=== PATIENT | male | born 1955 | race Caucasian/White ===

== ENCOUNTER → 2019-06-13 | Day surgery (SDC) | payer OTHER ==
[2019-06-06 14:44] LABS: INR 1.34; PROTHROMBIN TIME 17.2 seconds (11.9-14.5)
[2019-06-06 14:45] LABS: PARTIAL THROMBOPLASTIN TIME 39.6 seconds (23.8-35.5)
[2019-06-06 14:48] LABS: ANION GAP 11.8 mmol/L (8-16); BLOOD UREA NITROGEN 11 mg/dL (7-26); BUN/CREATININE RATIO 12 (6-25); CALCIUM 8.9 mg/dL (8.4-10.2); CARBON DIOXIDE 23 mmol/L (22-29); CHLORIDE 102 mmol/L (98-107); CREATININE, SERUM 0.93 mg/dL (0.72-1.25); EST GLOMERULAR FILTRATION RATE > 60 ML/MIN (60-); GLUCOSE 99 mg/dL (74-118); POTASSIUM 3.8 mmol/L (3.5-5.1); SODIUM 133 mmol/L (136-145)
[2019-06-06 17:12] LABS: ALANINE AMINOTRANSFERASE 23 IU/L (0-55); ALBUMIN 2.9 g/dL (3.5-5.0); ALKALINE PHOSPHATASE 119 IU/L (40-150); BILIRUBIN,DIRECT 1.4 mg/dL (0.0-0.5)
[~2019-06-13] MED LIST: ASPIRIN325 MG PO; BENICAR20 MG PO; BYSTOLIC10 MG PO; FENTANYL CITRATE/PF 100MCG/2 ML INJ ONE; FUROSEMIDE40 MG PO; HUMALOG100 UNIT/3 SC; LANTUS 3ML100 UNITS/ SC; MIDAZOLAM HCL 2 MG/2 ML VIAL ONE; NEOMYC-POLYM-DEX5 ML OP; OR PHACO EYE KIT ONE; POTASSIUM99 MG PO; PREOP PHACO EYE KIT ONE; PROPANOLOL PO; SPIRONOLACTONE25 MG PO; SYNTHROID50 MCG PO; VITAMIN B-121000 MCG PO
--- OUTSIDE RECORDS SUMMARY | 2019-06-13 08:39 | XMS REPORT | Clinical Summary ---
Author Author Kirill Yazidi Organization [facility] Address Unknown Phone Unavailable Care Team Providers Care Clinical Safety Manager Name Role Phone Vaibhav Fam MD PCP Allergies Comments Active Allergy Reactions Severity Noted Date Latex 11/15/2017 Medications End Date Status Medication Sig Dispensed Refills Start Date Active levothyroxine (SYNTHROID, Take 200 mcg 0 LEVOXYL) 200 mcg tablet by mouth daily. Active insulin lispro (HumaLOG) Inject 15 0 100 unit/mL injection Units under the skin 3 (three) times a day before meals. Active insulin GLARGINE (LANTUS) Inject 15 0 100 unit/mL injection Units under (vial) the skin nightly. Active pantoprazole (PROTONIX) Take 40 mg by 0 40 MG EC tablet mouth. Active levothyroxine (SYNTHROID, Take 200 mcg 0 LEVOXYL) 200 mcg tablet by mouth. 7 06/28/2018 Discontinued furosemide (LASIX) 40 mg Take 40 mg by 0 tablet mouth every evening. 06/28/2018 Discontinued traMADol (ULTRAM) 50 mg Take 1 tablet 6 tablet 0 tablet (50 mg total) 8 by mouth every 6 (six) hours as needed for moderate pain for up to 2 days. 06/28/2018 Discontinued spironolactone Take 25 mg by 0 (ALDACTONE) 25 MG tablet mouth every morning. 06/28/2018 Discontinued propranolol (INDERAL) 20 Take 20 mg by 0 MG tablet mouth 2 (two) times a day. 07/28/2018 midodrine (PROAMATINE) 10 Take 1 tablet 90 tablet 0 MG tablet (10 mg total) 8 by mouth 3 (three) times a day for 30 days. 07/28/2018 midodrine (PROAMATINE) 5 Take 1 tablet 0 MG tablet (5 mg total) 8 by mouth every 6 (six) hours as needed (systolic b/p <100) for up to 30 days. 07/28/2018 hydrocortisone sodium Infuse 0.5 mL 30 mL 0 succinate (Solu-CORTEF) (25 mg total) 8 100 mg/2 mL recon soln into a venous catheter every 12 (twelve) hours for 30 days. 07/28/2018 enoxaparin (LOVENOX) 30 Inject 0.3 mL 9 mL 0 mg/0.3 mL syringe (30 mg total) 8 under the skin daily for 30 days. 07/29/2018 spironolactone Take 1 tablet 30 tablet 0 (ALDACTONE) 100 MG tablet (100 mg 8 total) by mouth daily for 30 days. 07/12/2018 vancomycin (VANCOCIN) Infuse 1,000 0 1000 mg IVPB in 250 mL NS mg into a 8 combo venous catheter every 12 (twelve) hours for 14 days. Active Problems Problem Noted Date Acute renal failure 06/14/2018 Heart block AV second degree 11/17/2017 Liver disease 11/16/2017 Hypertension 11/16/2017 Uncontrolled type 2 diabetes mellitus with hyperosmolar nonketotic 11/15/2017 hyperglycemia Encounters Care Team Description Date Type Specialty Alexis Richardson MD Pacemaker insertion new or replacement [88367 (CPT)] 06/24/2018 Surgery Procedural Cardiology Álvaro Jarquin MD Insertion or replacement temporary transvenous pacemaker leads [03714 (CPT)] 06/17/2018 Surgery Procedural Cardiology Celestino Ruiz MD Kohlnhofer, Matthew, MD Acute renal failure, unspecified acute renal failure type (Primary Dx); Hypovolemic shock; Altered mental status, unspecified altered mental status type; Hyponatremia; Lactic acidosis; Acute respiratory failure, unspecified whether with hypoxia or hypercapnia; Septic shock 06/14/2018 [facility] General Internal Medicine - Encounter 06/28/2018 after 06/12/2018 Immunizations Name Dates Previously Given Next Due FLUCELVAX QUAD PF (0.5mL 11/16/2017 syringe) Pneumococcal Conjugate 11/16/2017 [facility] Social History Date Tobacco Use Types Packs/Day Years Used Former Smoker Smokeless Tobacco: Former User Tobacco Cessation: Counseling Given: No Alcohol Use Drinks/Week oz/Week Comments Yes "Quit" Sex Assigned at Date Recorded Not on file Industry Job Start Date Occupation Not on file Not on file Not on file Travel End Travel History Travel Start No recent travel history available. Last Filed Vital Signs Time Taken Vital Sign Reading 06/28/2018 3:54 PM CDT Blood Pressure 122/59 06/28/2018 3:54 PM CDT Pulse 79 06/28/2018 3:54 PM CDT Temperature 36.9 C (98.4 F) 06/28/2018 3:54 PM CDT Respiratory Rate 18 06/28/2018 4:36 PM CDT Oxygen Saturation 93% - Inhaled Oxygen - Concentration 06/22/2018 4:00 AM CDT Weight 119 kg (262 lb 2 oz) 06/14/2018 8:12 AM CDT Height 177.8 cm (5' 10") 06/14/2018 8:12 AM CDT Body Mass Index 37.61 Plan of Treatment Health Maintenance Due Date Last Done Comments DIABETIC RETINAL EYE EXAM 1956 DIABETIC FOOT EXAM 1966 URINE MICROALBUMIN 1966 COLONOSCOPY SCREENING 2006 SHINGLES VACCINES (#1) 2006 INFLUENZA VACCINE 06/29/2019 11/16/2017, 11/03/2016 Implants Device Identifier Shelf Expiration Date Model / Serial / Lot Implanted Type Area [facility] 09/21/2020 S-[id number] / [id number] / [id number] Disp Pacing Cable, Small Clip Cables/ N/A: N/A CRIS W/Safe Connect Leads MEDICAL, Implanted: Qty: 1 on 06/24/2018 by INC. Alexis Richardson MD 03/09/2020 [id number] / [id number] / [id number] Accolade Mri Pacemaker - [id number] Cardiac N/A: N/A [place] - [id number] Pacemaker SCIENTIFIC Implanted: Qty: 1 on 06/24/2018 by Generators - CRM Alexis Richardson MD 01/17/2020 [id number] / [id number] / [id number] Ingevity Mri Pacing Lead 45cm - Cardiac N/A: N/A [place] [id number] - [id number] Pacing SCIENTIFIC Implanted: Qty: 1 on 06/24/2018 by Leads Alexis Kern MD Electrodes or Accessorie s 11/30/2018 [id number] / [id number] / [id number] 52cm Ingevity Mri Active Fixation Cardiac N/A: N/A [place]ON Pacing Lead - [id number] - [id number] Pacing SCIENTIFIC Implanted: Qty: 1 on 06/24/2018 by Leads Alexis Kern MD Electrodes or Accessorie s Procedures Comments Procedure Name Priority Date/Time Associated Diagnosis POC GLUCOSE Routine 06/28/2018 4:19 PM CDT POC GLUCOSE Routine 06/28/2018 11:26 AM CDT BUN LEVEL Routine 06/28/2018 7:09 AM CDT ZZESTIMATED GFR Routine 06/28/2018 7:09 AM CDT CREATININE LEVEL Routine 06/28/2018 7:09 AM CDT POC GLUCOSE Routine 06/28/2018 5:34 AM CDT HC COMPLETE BLD COUNT Routine 06/28/2018 W/AUTO DIFF 4:38 AM CDT POC GLUCOSE Routine 06/27/2018 7:45 PM CDT POC GLUCOSE Routine 06/27/2018 4:32 PM CDT POC GLUCOSE Routine 06/27/2018 11:20 AM CDT POC GLUCOSE Routine 06/27/2018 5:48 AM CDT POC GLUCOSE Routine 06/26/2018 8:23 PM CDT POC GLUCOSE Routine 06/26/2018 4:50 PM CDT POC GLUCOSE Routine 06/26/2018 11:46 AM CDT POC GLUCOSE Routine 06/26/2018 7:45 AM CDT POC GLUCOSE Routine 06/26/2018 5:38 AM CDT SMEAR REVIEW Routine 06/26/2018 5:15 AM CDT VANCOMYCIN LEVEL, TROUGH Timed 06/26/2018 5:15 AM CDT ZZESTIMATED GFR Routine 06/26/2018 5:15 AM CDT MAGNESIUM LEVEL Routine 06/26/2018 5:15 AM CDT COMPREHENSIVE METABOLIC Routine 06/26/2018 PANEL 5:15 AM CDT HC COMPLETE BLD COUNT Routine 06/26/2018 W/AUTO DIFF 5:15 AM CDT POC GLUCOSE Routine 06/25/2018 8:24 PM CDT POC GLUCOSE Routine 06/25/2018 4:38 PM CDT POC GLUCOSE Routine 06/25/2018 12:27 PM CDT ZZESTIMATED GFR Routine 06/25/2018 9:04 AM CDT BASIC METABOLIC PANEL Routine 06/25/2018 9:04 AM CDT HC COMPLETE BLD COUNT Routine 06/25/2018 W/AUTO DIFF 9:04 AM CDT POC GLUCOSE Routine 06/25/2018 7:14 AM CDT POC GLUCOSE Routine 06/24/2018 8:50 PM CDT POC GLUCOSE Routine 06/24/2018 5:19 PM CDT XR CHEST 1 VW PORTABLE Routine 06/24/2018 3:40 PM CDT EP PACEMAKER INSERTION Routine 06/24/2018 NEW OR REPLACEMENT 2:02 PM CDT POC GLUCOSE Routine 06/24/2018 11:34 AM CDT TYPE AND SCREEN Routine 06/24/2018 11:15 AM CDT PARTIAL THROMBOPLASTIN Routine 06/24/2018 TIME (PTT) 10:25 AM CDT PROTHROMBIN TIME WITH INR Routine 06/24/2018 10:25 AM CDT POC GLUCOSE Routine 06/24/2018 7:17 AM CDT SMEAR REVIEW Routine 06/24/2018 5:05 AM CDT VANCOMYCIN LEVEL, TROUGH Timed 06/24/2018 5:05 AM CDT ZZESTIMATED GFR Routine 06/24/2018 5:05 AM CDT HC COMPLETE BLD COUNT Routine 06/24/2018 W/AUTO DIFF 5:05 AM CDT PHOSPHORUS LEVEL Routine 06/24/2018 5:05 AM CDT MAGNESIUM LEVEL Routine 06/24/2018 5:05 AM CDT BASIC METABOLIC PANEL Routine 06/24/2018 5:05 AM CDT POC GLUCOSE Routine 06/23/2018 8:43 PM CDT POC GLUCOSE Routine 06/23/2018 5:02 PM CDT POC GLUCOSE Routine 06/23/2018 11:28 AM CDT POC GLUCOSE Routine 06/23/2018 7:36 AM CDT ZZESTIMATED GFR Routine 06/23/2018 5:15 AM CDT MAGNESIUM LEVEL Routine 06/23/2018 5:15 AM CDT PHOSPHORUS LEVEL Routine 06/23/2018 5:15 AM CDT BASIC METABOLIC PANEL Routine 06/23/2018 5:15 AM CDT HC COMPLETE BLD COUNT Routine 06/23/2018 W/AUTO DIFF 5:15 AM CDT IONIZED CALCIUM Routine 06/23/2018 5:15 AM CDT VANCOMYCIN LEVEL, TROUGH Timed 06/23/2018 5:15 AM CDT POC GLUCOSE Routine 06/23/2018 5:10 AM CDT POC GLUCOSE Routine 06/22/2018 11:42 PM CDT POC GLUCOSE Routine 06/22/2018 4:39 PM CDT POC GLUCOSE Routine 06/22/2018 12:11 PM CDT POC GLUCOSE Routine 06/22/2018 7:38 AM CDT ZZESTIMATED GFR Routine 06/22/2018 5:56 AM CDT VANCOMYCIN LEVEL, TROUGH Routine 06/22/2018 5:56 AM CDT HC COMPLETE BLD COUNT Routine 06/22/2018 W/AUTO DIFF 5:56 AM CDT MAGNESIUM LEVEL Routine 06/22/2018 5:56 AM CDT PHOSPHORUS LEVEL Routine 06/22/2018 5:56 AM CDT COMPREHENSIVE METABOLIC Routine 06/22/2018 PANEL 5:56 AM CDT POC GLUCOSE Routine 06/22/2018 4:57 AM CDT POC GLUCOSE Routine 06/22/2018 12:09 AM CDT POC GLUCOSE Routine 06/21/2018 8:11 PM CDT HEMODIALYSIS Routine 06/21/2018 5:00 PM CDT POC GLUCOSE Routine 06/21/2018 4:18 PM CDT POC GLUCOSE Routine 06/21/2018 11:40 AM CDT XR CHEST 1 VW PORTABLE Routine 06/21/2018 9:40 AM CDT IONIZED CALCIUM Routine 06/21/2018 9:05 AM CDT PHOSPHORUS LEVEL Routine 06/21/2018 9:05 AM CDT MAGNESIUM LEVEL Routine 06/21/2018 9:05 AM CDT POC GLUCOSE Routine 06/21/2018 7:34 AM CDT ARTERIAL BLOOD GAS Routine 06/21/2018 6:13 AM CDT BLOOD CULTURE, AEROBIC & Routine 06/21/2018 ANAEROBIC 5:00 AM CDT ZZESTIMATED GFR Routine 06/21/2018 4:45 AM CDT COMPREHENSIVE METABOLIC Routine 06/21/2018 PANEL 4:45 AM CDT HC COMPLETE BLD COUNT Routine 06/21/2018 W/AUTO DIFF 4:45 AM CDT BLOOD CULTURE, AEROBIC & Routine 06/21/2018 ANAEROBIC 4:45 AM CDT POC GLUCOSE Routine 06/21/2018 4:34 AM CDT POC GLUCOSE Routine 06/21/2018 12:27 AM CDT POC GLUCOSE Routine 06/20/2018 8:32 PM CDT POC GLUCOSE Routine 06/20/2018 3:56 PM CDT POC GLUCOSE Routine 06/20/2018 11:39 AM CDT VANCOMYCIN LEVEL, RANDOM Routine 06/20/2018 8:00 AM CDT POC GLUCOSE Routine 06/20/2018 7:44 AM CDT POC GLUCOSE Routine 06/20/2018 4:10 AM CDT MAGNESIUM LEVEL Routine 06/20/2018 4:10 AM CDT PHOSPHORUS LEVEL Routine 06/20/2018 4:10 AM CDT ZZESTIMATED GFR Routine 06/20/2018 4:10 AM CDT BASIC METABOLIC PANEL Routine 06/20/2018 4:10 AM CDT POC GLUCOSE Routine 06/20/2018 12:14 AM CDT GRAM STAIN Routine 06/19/2018 8:50 PM CDT SPUTUM CULTURE Routine 06/19/2018 8:50 PM CDT POC GLUCOSE Routine 06/19/2018 8:42 PM CDT POC GLUCOSE Routine 06/19/2018 4:51 PM CDT POC GLUCOSE Routine 06/19/2018 12:33 PM CDT POC GLUCOSE Routine 06/19/2018 7:34 AM CDT POC GLUCOSE Routine 06/19/2018 4:42 AM CDT ZZESTIMATED GFR Routine 06/19/2018 4:40 AM CDT VANCOMYCIN LEVEL, RANDOM Routine 06/19/2018 4:40 AM CDT COMPREHENSIVE METABOLIC Routine 06/19/2018 PANEL 4:40 AM CDT HC COMPLETE BLD COUNT Routine 06/19/2018 W/AUTO DIFF 4:40 AM CDT AMMONIA LEVEL Routine 06/19/2018 4:40 AM CDT ARTERIAL BLOOD GAS Routine 06/19/2018 4:16 AM CDT POC GLUCOSE Routine 06/19/2018 12:56 AM CDT POC GLUCOSE Routine 06/18/2018 8:14 PM CDT HEMODIALYSIS Routine 06/18/2018 5:37 PM CDT POC GLUCOSE Routine 06/18/2018 4:07 PM CDT POC GLUCOSE Routine 06/18/2018 12:37 PM CDT VANCOMYCIN LEVEL, RANDOM Timed 06/18/2018 10:35 AM CDT POC GLUCOSE Routine 06/18/2018 7:24 AM CDT HEMODIALYSIS Routine 06/18/2018 7:06 AM CDT MANUAL DIFFERENTIAL Routine 06/18/2018 5:15 AM CDT ZZESTIMATED GFR Routine 06/18/2018 5:15 AM CDT CBC WITH PLATELET AND Routine 06/18/2018 DIFFERENTIAL 5:15 AM CDT IONIZED CALCIUM Routine 06/18/2018 5:15 AM CDT LACTIC ACID LEVEL Routine 06/18/2018 5:15 AM CDT PROTHROMBIN TIME WITH INR Routine 06/18/2018 5:15 AM CDT PHOSPHORUS LEVEL Routine 06/18/2018 5:15 AM CDT MAGNESIUM LEVEL Routine 06/18/2018 5:15 AM CDT COMPREHENSIVE METABOLIC Routine 06/18/2018 PANEL 5:15 AM CDT XR CHEST 1 VW PORTABLE Routine 06/18/2018 5:08 AM CDT POC GLUCOSE Routine 06/18/2018 4:39 AM CDT POC GLUCOSE Routine 06/18/2018 12:22 AM CDT POC GLUCOSE Routine 06/17/2018 8:15 PM CDT XR ABDOMEN 1 VW PORTABLE STAT 06/17/2018 6:34 PM CDT XR CHEST 1 VW PORTABLE STAT 06/17/2018 6:33 PM CDT EP INSERTION OR Routine 06/17/2018 REPLACEMENT TEMPORARY 4:55 PM CDT TRANSVENOUS PACEMAKER LEADS TROPONIN Timed 06/17/2018 2:15 PM CDT VANCOMYCIN LEVEL, RANDOM Routine 06/17/2018 2:15 PM CDT ARTERIAL BLOOD GAS Routine 06/17/2018 11:57 AM CDT POC GLUCOSE Routine 06/17/2018 11:51 AM CDT ECG 12-LEAD Routine 06/17/2018 11:32 AM CDT TROPONIN Routine 06/17/2018 10:35 AM CDT POC GLUCOSE Routine 06/17/2018 7:19 AM CDT HEMODIALYSIS Routine 06/17/2018 7:02 AM CDT BLOOD CULTURE, AEROBIC & Routine 06/17/2018 ANAEROBIC 3:30 AM CDT BLOOD CULTURE, AEROBIC & Routine 06/17/2018 ANAEROBIC 3:20 AM CDT MANUAL DIFFERENTIAL Routine 06/17/2018 3:13 AM CDT ZZESTIMATED GFR Routine 06/17/2018 3:13 AM CDT PROTHROMBIN TIME WITH INR Routine 06/17/2018 3:13 AM CDT PARTIAL THROMBOPLASTIN Routine 06/17/2018 TIME (PTT) 3:13 AM CDT LACTIC ACID LEVEL Routine 06/17/2018 3:13 AM CDT IONIZED CALCIUM Routine 06/17/2018 3:13 AM CDT PHOSPHORUS LEVEL Routine 06/17/2018 3:13 AM CDT MAGNESIUM LEVEL Routine 06/17/2018 3:13 AM CDT BASIC METABOLIC PANEL Routine 06/17/2018 3:13 AM CDT CBC WITH PLATELET AND Routine 06/17/2018 DIFFERENTIAL 3:13 AM CDT POC GLUCOSE Routine 06/16/2018 11:57 PM CDT POC GLUCOSE Routine 06/16/2018 8:21 PM CDT GRAM STAIN Routine 06/16/2018 5:07 PM CDT SPUTUM CULTURE Routine 06/16/2018 5:07 PM CDT VANCOMYCIN LEVEL, RANDOM Routine 06/16/2018 4:50 PM CDT PROCALCITONIN Routine 06/16/2018 4:50 PM CDT POC GLUCOSE Routine 06/16/2018 3:53 PM CDT POC GLUCOSE Routine 06/16/2018 11:32 AM CDT ARTERIAL BLOOD GAS Routine 06/16/2018 8:23 AM CDT POC GLUCOSE Routine 06/16/2018 7:57 AM CDT XR CHEST 1 VW PORTABLE Routine 06/16/2018 6:12 AM CDT MANUAL DIFFERENTIAL Routine 06/16/2018 4:25 AM CDT ZZESTIMATED GFR Routine 06/16/2018 4:25 AM CDT PROTHROMBIN TIME WITH INR Routine 06/16/2018 4:25 AM CDT LACTIC ACID LEVEL Routine 06/16/2018 4:25 AM CDT IONIZED CALCIUM Routine 06/16/2018 4:25 AM CDT PHOSPHORUS LEVEL Routine 06/16/2018 4:25 AM CDT MAGNESIUM LEVEL Routine 06/16/2018 4:25 AM CDT COMPREHENSIVE METABOLIC Routine 06/16/2018 PANEL 4:25 AM CDT CBC WITH PLATELET AND Routine 06/16/2018 DIFFERENTIAL 4:25 AM CDT POC GLUCOSE Routine 06/16/2018 12:30 AM CDT POC GLUCOSE Routine 06/15/2018 8:40 PM CDT VANCOMYCIN LEVEL, RANDOM Routine 06/15/2018 6:00 PM CDT POC GLUCOSE Routine 06/15/2018 5:58 PM CDT CO INSERT Routine 06/15/2018 Acute respiratory CATH,ART,PERCUT,SHORTTERM 4:52 PM CDT failure, unspecified whether with hypoxia or hypercapnia Septic shock HEPATITIS B SURFACE STAT 06/15/2018 ANTIGEN 2:05 PM CDT ARTERIAL BLOOD GAS Routine 06/15/2018 2:01 PM CDT XR CHEST 1 VW PORTABLE STAT 06/15/2018 12:48 PM CDT INTUBATION Routine 06/15/2018 Acute respiratory 10:50 AM CDT failure, unspecified whether with hypoxia or hypercapnia Septic shock US ABDOMEN COMPLETE Routine 06/15/2018 8:58 AM CDT MAGNESIUM LEVEL STAT 06/15/2018 8:30 AM CDT ZZESTIMATED GFR Routine 06/15/2018 8:30 AM CDT COMPREHENSIVE METABOLIC Routine 06/15/2018 PANEL 8:30 AM CDT POC GLUCOSE Routine 06/15/2018 7:34 AM CDT ECG 12-LEAD Routine 06/15/2018 5:59 AM CDT MANUAL DIFFERENTIAL Routine 06/15/2018 4:10 AM CDT ZZESTIMATED GFR Routine 06/15/2018 4:10 AM CDT PROTHROMBIN TIME WITH INR Routine 06/15/2018 4:10 AM CDT HEMOGLOBIN A1C Routine 06/15/2018 4:10 AM CDT LACTIC ACID LEVEL Routine 06/15/2018 4:10 AM CDT COMPREHENSIVE METABOLIC Routine 06/15/2018 PANEL 4:10 AM CDT MAGNESIUM LEVEL Routine 06/15/2018 4:10 AM CDT PHOSPHORUS LEVEL Routine 06/15/2018 4:10 AM CDT CBC WITH PLATELET AND Routine 06/15/2018 DIFFERENTIAL 4:10 AM CDT IONIZED CALCIUM Routine 06/15/2018 4:10 AM CDT POC GLUCOSE Routine 06/14/2018 11:41 PM CDT POC GLUCOSE Routine 06/14/2018 8:38 PM CDT B NATRIURETIC PEPTIDE Routine 06/14/2018 8:35 PM CDT US DUPLEX VENOUS LOWER Routine 06/14/2018 EXTREMITY BILATERAL 5:55 PM CDT ECHOCARDIOGRAM 2D Routine 06/14/2018 COMPLETE W MMODE SPECTRAL 5:40 PM CDT COLOR DOPPLER (41401) POC GLUCOSE Routine 06/14/2018 5:[address] ABDOMEN PELVIS WO Routine 06/14/2018 CONTRAST 4:52 PM CDT LACTIC ACID LEVEL, SEPSIS Timed 06/14/2018 - NOW AND REPEAT 2X EVERY 2:42 PM CDT 3 HOURS TROPONIN Timed 06/14/2018 12:24 PM CDT XR CHEST 1 VW PORTABLE STAT 06/14/2018 11:40 AM CDT LACTIC ACID LEVEL, SEPSIS Timed 06/14/2018 - NOW AND REPEAT 2X EVERY 11:20 AM CDT [address] HEAD WO CONTRAST STAT 06/14/2018 10:16 AM CDT VENOUS BLOOD GAS Routine 06/14/2018 9:18 AM CDT URINALYSIS SCREEN AND STAT 06/14/2018 MICROSCOPY, WITH REFLEX 9:09 AM CDT TO CULTURE GRAM STAIN STAT 06/14/2018 9:09 AM CDT URINE CULTURE STAT 06/14/2018 9:09 AM CDT XR CHEST 1 VW PORTABLE STAT 06/14/2018 9:00 AM CDT ECG 12-LEAD STAT 06/14/2018 8:29 AM CDT PROTHROMBIN TIME WITH INR STAT 06/14/2018 8:26 AM CDT LACTIC ACID LEVEL, SEPSIS STAT 06/14/2018 - NOW AND REPEAT 2X EVERY 8:26 AM CDT 3 HOURS BLOOD CULTURE, AEROBIC & Routine 06/14/2018 ANAEROBIC 8:26 AM CDT BLOOD CULTURE, AEROBIC & Routine 06/14/2018 ANAEROBIC 8:26 AM CDT MANUAL DIFFERENTIAL STAT 06/14/2018 8:21 AM CDT ZZESTIMATED GFR STAT 06/14/2018 8:21 AM CDT T4, FREE STAT 06/14/2018 8:21 AM CDT T4 STAT 06/14/2018 8:21 AM CDT THYROID STIMULATING STAT 06/14/2018 HORMONE 8:21 AM CDT AMMONIA LEVEL STAT 06/14/2018 8:21 AM CDT CREATINE KINASE, TOTAL STAT 06/14/2018 (CPK) 8:21 AM CDT TROPONIN STAT 06/14/2018 8:21 AM CDT LIPASE LEVEL STAT 06/14/2018 8:21 AM CDT COMPREHENSIVE METABOLIC STAT 06/14/2018 PANEL 8:21 AM CDT CBC WITH PLATELET AND STAT 06/14/2018 DIFFERENTIAL 8:21 AM CDT ECG ED PRELIMINARY Routine 06/14/2018 INTERPRETATION 8:06 AM CDT CO INSERT NON-TUNNEL CV Routine 06/14/2018 CATH 8:06 AM CDT CO CRITICAL CARE, E/M Routine 06/14/2018 30-74 MINUTES 8:06 AM CDT after 06/12/2018 Results * POC glucose (06/28/2018 4:19 PM CDT) Only the most recent of 70 results within the time period is included. [facility] POC glucose 188 (H) 65 - 99 mg/dL [facility] Comment: DEPARTMENT OF Meter ID: [id number] PATHOLOGY AND Foil Spinner: [email or web address] Specimen Performing Organization Address [facility] Phone Number [address] [place] [phone] PATHOLOGY AND Standardized Safety [facility] * Estimated GFR (06/28/2018 7:09 AM CDT) Only the most recent of 15 results within the time period is included. Pathologist [facility] GFR Non Af Amer >90 mL/min/1.73 m2 [facility] DEPARTMENT OF PATHOLOGY AND Standardized Safety MEDICINE GFR Af Amer >90 mL/min/1.73 m2 [facility] Comment: DEPARTMENT OF Chronic kidney disease: <60 PATHOLOGY AND mL/min/1.73m2 GENOMIC Kidney failure: <15 MEDICINE mL/min/1.73m2 The estimated GFR is calculated from the IDMS-traceable Modification of Diet in Renal Disease Equation. The accuracy of the calculation is poor when the creatinine is normal. Calculated values >90 mL/min/1.73m2 are not reported. This equation has not been validated in children (<18 years), women, the elderly (>70 years), or ethnic groups other than Caucasians and Americans. Specimen Plasma specimen Performing Organization Address [facility] Phone Number [address] [place] [address] PATHOLOGY AND Standardized Safety MEDICINE * BUN level (06/28/2018 7:09 AM CDT) Pathologist [facility] BUN 32 (H) 8 - 23 mg/dL [facility] DEPARTMENT OF PATHOLOGY AND Standardized Safety MEDICINE Specimen Plasma specimen Performing Organization Address City/[facility]/Zipcode Phone Number [place] [address] [place] [address] PATHOLOGY AND [facility] MEDICINE * Creatinine level (06/28/2018 7:09 AM CDT) [facility] Creatinine 0.8 0.7 - 1.2 mg/dL [facility] DEPARTMENT OF PATHOLOGY AND GENOMIC MEDICINE Specimen Plasma specimen Performing Organization Address City/[facility]/Zipcode Phone Number [facility] [address] [place] [phone] PATHOLOGY AND GENOMIC MEDICINE * CBC with platelet and differential (06/28/2018 4:38 AM CDT) Only the most recent of 13 results within the time period is included. [facility] WBC 7.69 4.50 - 11.00 k/uL [facility] DEPARTMENT OF PATHOLOGY AND GENOMIC MEDICINE RBC 2.94 (L) 4.40 - 6.00 m/uL [facility] DEPARTMENT OF PATHOLOGY AND GENOMIC MEDICINE HGB 9.4 (L) 14.0 - 18.0 g/dL [facility] DEPARTMENT OF PATHOLOGY AND GENOMIC MEDICINE HCT 27.5 (L) 41.0 - 51.0 % [facility] DEPARTMENT OF PATHOLOGY AND GENOMIC MEDICINE MCV 93.5 82.0 - 100.0 fL [facility] DEPARTMENT OF PATHOLOGY AND GENOMIC MEDICINE MCH 32.0 27.0 - 34.0 pg [facility] DEPARTMENT OF PATHOLOGY AND GENOMIC MEDICINE MCHC 34.2 31.0 - 37.0 g/dL [facility] DEPARTMENT OF PATHOLOGY AND GENOMIC MEDICINE RDW - SD 61.0 (H) 37.0 - 55.0 fL [facility] DEPARTMENT OF PATHOLOGY AND GENOMIC MEDICINE MPV 10.9 8.8 - 13.2 fL [facility] DEPARTMENT OF PATHOLOGY AND GENOMIC MEDICINE Platelet count 71 (L) 150 - 400 k/uL [facility] DEPARTMENT OF PATHOLOGY AND GENOMIC MEDICINE Nucleated RBC 0.00 /100 WBC [facility] DEPARTMENT OF PATHOLOGY AND GENOMIC MEDICINE Neutrophils 86.1 (H) 39.0 - 69.0 % [facility] DEPARTMENT OF PATHOLOGY AND GENOMIC MEDICINE Lymphocytes 5.6 (L) 25.0 - 45.0 % [facility] DEPARTMENT OF PATHOLOGY AND GENOMIC MEDICINE Monocytes 6.2 0.0 - 10.0 % [facility] DEPARTMENT OF PATHOLOGY AND GENOMIC MEDICINE Eosinophils 1.2 0.0 - 5.0 % [facility] DEPARTMENT OF PATHOLOGY AND GENOMIC MEDICINE Basophils 0.0 0.0 - 1.0 % [facility] DEPARTMENT OF PATHOLOGY AND GENOMIC MEDICINE Specimen Blood Performing Organization Address [facility] Phone Number [address] [place] [address] PATHOLOGY AND GENOMIC MEDICINE * Smear review (06/26/2018 5:15 AM CDT) Only the most recent of 2 results within the time period is included. Platelet slide Decreased (A) [facility] review DEPARTMENT OF PATHOLOGY AND GENOMIC MEDICINE Anisocytosis Moderate [facility] DEPARTMENT OF PATHOLOGY AND GENOMIC MEDICINE Target cells Moderate (A) [facility] DEPARTMENT OF PATHOLOGY AND GENOMIC MEDICINE Ovalocytes Moderate [facility] DEPARTMENT OF PATHOLOGY AND GENOMIC MEDICINE Anisochromia Moderate [facility] DEPARTMENT OF PATHOLOGY AND GENOMIC MEDICINE Specimen Performing Organization Address [facility] Phone Number [address] [place] [address] PATHOLOGY AND GENOMIC MEDICINE * Magnesium level (06/26/2018 5:15 AM CDT) Only the most recent of 11 results within the time period is included. Pathologist [facility] Magnesium 1.6 1.6 - 2.4 mg/dL [facility] DEPARTMENT OF PATHOLOGY AND GENOMIC MEDICINE Specimen Plasma specimen Performing Organization Address [facility] Phone Number [address] [place] [address] PATHOLOGY AND [facility] * Vancomycin level, trough (06/26/2018 5:15 AM CDT) Only the most recent of 4 results within the time period is included. Vancomycin, 17.5 10.0 - 20.0 ug/mL [facility] trough Comment: DEPARTMENT OF Therapeutic Ranges: PATHOLOGY AND Peak 30.0 - GENOMIC 40.0 ug/mL MEDICINE Vilsgp51.0 - 20.0 ug/mL Specimen Serum Performing Organization Address [facility] Phone Number [address] [place] [address] PATHOLOGY AND GENOMIC MEDICINE * Comprehensive metabolic panel (06/26/2018 5:15 AM CDT) Only the most recent of 9 results within the time period is included. Sodium 143 135 - 148 mEq/L [facility] DEPARTMENT OF PATHOLOGY AND GENOMIC MEDICINE Potassium 3.2 (L) 3.5 - 5.0 mEq/L [facility] DEPARTMENT OF PATHOLOGY AND GENOMIC MEDICINE Chloride 102 98 - 112 mEq/L [facility] DEPARTMENT OF PATHOLOGY AND GENOMIC MEDICINE CO2 29 24 - 31 mEq/L [facility] DEPARTMENT OF PATHOLOGY AND GENOMIC MEDICINE Anion gap 12@ANIO 7 - 15 mEq/L [facility] DEPARTMENT OF PATHOLOGY AND GENOMIC MEDICINE BUN 56 (H) 8 - 23 mg/dL [facility] DEPARTMENT OF PATHOLOGY AND GENOMIC MEDICINE Creatinine 0.9 0.7 - 1.2 mg/dL [facility] DEPARTMENT OF PATHOLOGY AND GENOMIC MEDICINE Glucose 200 (H) 65 - 99 mg/dL [facility] DEPARTMENT OF PATHOLOGY AND GENOMIC MEDICINE Calcium 8.1 (L) 8.8 - 10.2 mg/dL [facility] DEPARTMENT OF PATHOLOGY AND GENOMIC MEDICINE Protein 7.2 6.3 - 8.3 g/dL [facility] Comment: DEPARTMENT OF PATHOLOGY AND 4.6-7.0 g/dL [address] week 4.4-7.6 g/dL 7 months-1year 5.1-7.3 g/dL 1-2 years5.6-7 .5 g/dL >3 years6.0-8 .0 g/dL 18-150 6.3-8.3 g/dL Albumin 2.5 (L) 3.5 - 5.0 g/dL [facility] DEPARTMENT OF PATHOLOGY AND GENOMIC MEDICINE A/G ratio 0.5 (L) 0.7 - 3.8 [facility] DEPARTMENT OF PATHOLOGY AND GENOMIC MEDICINE Alkaline 100 40 - 129 U/L [facility] phosphatase DEPARTMENT OF PATHOLOGY AND GENOMIC MEDICINE AST 78 (H) 10 - 50 U/L [facility] DEPARTMENT OF PATHOLOGY AND GENOMIC MEDICINE ALT 86 (H) 5 - 50 U/L [facility] DEPARTMENT OF PATHOLOGY AND GENOMIC MEDICINE Total bilirubin 7.7 (H) 0.0 - 1.2 mg/dL [facility] DEPARTMENT OF PATHOLOGY AND GENOMIC MEDICINE Specimen Plasma specimen Performing Organization Address City/State/Zipcode Phone Number [facility] [address] [place] [address] PATHOLOGY AND GENOMIC [facility] * Basic metabolic panel (06/25/2018 9:04 AM CDT) Only the most recent of 5 results within the time period is included. Sodium 143 135 - 148 mEq/L [facility] DEPARTMENT OF PATHOLOGY AND GENOMIC MEDICINE Potassium 3.3 (L) 3.5 - 5.0 mEq/L [facility] DEPARTMENT OF PATHOLOGY AND GENOMIC MEDICINE Chloride 102 98 - 112 mEq/L [facility] DEPARTMENT OF PATHOLOGY AND GENOMIC MEDICINE CO2 27 24 - 31 mEq/L [facility] DEPARTMENT OF PATHOLOGY AND GENOMIC MEDICINE Anion gap 14@ANIO 7 - 15 mEq/L [facility] DEPARTMENT OF PATHOLOGY AND GENOMIC MEDICINE BUN 60 (H) 8 - 23 mg/dL [facility] DEPARTMENT OF PATHOLOGY AND GENOMIC MEDICINE Creatinine 1.0 0.7 - 1.2 mg/dL [facility] DEPARTMENT OF PATHOLOGY AND GENOMIC MEDICINE Glucose 256 (H) 65 - 99 mg/dL [facility] DEPARTMENT OF PATHOLOGY AND GENOMIC MEDICINE Calcium 7.5 (L) 8.8 - 10.2 mg/dL [facility] DEPARTMENT OF PATHOLOGY AND GENOMIC MEDICINE Specimen Plasma specimen Performing Organization Address City/State/Zipcode Phone Number [place] [address] [address] [place] [address] PATHOLOGY AND GENOMIC MEDICINE * XR Chest 1 Vw Portable (06/24/2018 3:40 PM CDT) Only the most recent of 8 results within the time period is included. Specimen Narrative Performed At EXAMINATION:XR CHEST 1 VW PORTABLE [facility] CLINICAL HISTORY:Pneumothorax COMPARISON:June 21, 2018 FINDINGS: The heart appears enlarged consistent with a by the AP technique. A multilead pacemaker is in place having been placed since the prior examination. No pneumothorax is visualized. A left IJ catheter projects with its tip unchanged in the area of the left brachiocephalic vein just proximal to the SVC. There is mild atelectasis at the left base. Overall there has been improved aeration of both lung bases. IMPRESSION: 1. Cardiomegaly. 2. Multilead pacemaker in place. 3. No change in the left IJ catheter. 4. Improving basilar lung opacities [id number] Procedure Note Interface, Radiology Results Incoming - 06/24/2018 3:55 PM CDT EXAMINATION: XR CHEST 1 VW PORTABLE CLINICAL HISTORY: Pneumothorax COMPARISON: June 21, 2018 FINDINGS: The heart appears enlarged consistent with a by the AP technique. A multilead pacemaker is in place having been placed since the prior examination. No pneumothorax is visualized. A left IJ catheter projects with its tip unchanged in the area of the left brachiocephalic vein just proximal to the SVC. There is mild atelectasis at the left base. Overall there has been improved aeration of both lung bases. IMPRESSION: 1. Cardiomegaly. 2. Multilead pacemaker in place. 3. No change in the left IJ catheter. 4. Improving basilar lung opacities [id number] Performing Organization Address City/State/Zipcode Phone Number [facility] [address] [place] [address] * Cv electrophysiology procedure (06/24/2018 2:02 PM CDT) Specimen Narrative Performed At Performing Organization Address City/[facility]/Zipcode Phone Number [facility] [address] [place] [address] * Type and screen (06/24/2018 11:15 AM CDT) Pathologist [facility] ABO grouping A [facility] DEPARTMENT OF PATHOLOGY AND GENOMIC MEDICINE Rh type POS [facility] DEPARTMENT OF PATHOLOGY AND GENOMIC MEDICINE Antibody screen NEG [facility] DEPARTMENT OF PATHOLOGY AND GENOMIC MEDICINE Specimen Blood Performing Organization Address [facility] Phone Number [facility] DEPARTMENT [address] [place] [address] PATHOLOGY AND GENOMIC MEDICINE * Partial thromboplastin time, activated (06/24/2018 10:25 AM CDT) Only the most recent of 2 results within the time period is included. Pathologist [facility] PTT 37.4 (H) 23.0 - 36.0 sec [facility] Comment: DEPARTMENT OF PTT therapeutic range for PATHOLOGY AND unfractionated heparin is GENOMIC 61.0-112.0 seconds which MEDICINE corresponds to Anti-Xa 0.3-0.7 U/ml. Specimen Blood Performing Organization Address [facility] Phone Number [facility] DEPARTMENT OF [address] [place] [address] [place] [address] PATHOLOGY AND GENOMIC MEDICINE * Prothrombin time with INR (06/24/2018 10:25 AM CDT) Only the most recent of 6 results within the time period is included. Pathologist [facility] Prothrombin 21.5 (H) 12.0 - 15.0 sec [facility] time DEPARTMENT OF PATHOLOGY AND GENOMIC MEDICINE INR 1.8 [facility] Comment: DEPARTMENT OF The International Normalized PATHOLOGY AND Ratio (INR) is a therapeutic GENOMIC monitoring tool for patients MEDICINE who are stable on oral anticoagulant therapy. An INR of 2.0-3.0 is suggested for deep vein thrombosis/pulmonary embolism. Specimen Blood Performing Organization Address [facility] Phone Number [address] [place] [address] PATHOLOGY AND [facility] MEDICINE * Phosphorus level (06/24/2018 5:05 AM CDT) Only the most recent of 9 results within the time period is included. Phosphorus 3.1 2.4 - 4.5 mg/dL [facility] DEPARTMENT OF PATHOLOGY AND GENOMIC MEDICINE Specimen Plasma specimen Performing Organization Address [facility] Phone Number [address] [place] [address] PATHOLOGY AND [facility] * Ionized calcium (06/23/2018 5:15 AM CDT) Only the most recent of 6 results within the time period is included. pH 7.55 [facility] DEPARTMENT OF PATHOLOGY AND GENOMIC MEDICINE Ionized calcium 0.93 (L) 1.11 - 1.32 mmol/L [facility] DEPARTMENT OF PATHOLOGY AND GENOMIC MEDICINE Specimen Plasma specimen Performing Organization Address [facility] Phone Number [address] [place] [address] PATHOLOGY AND [facility] * Arterial blood gas (06/21/2018 6:13 AM CDT) Only the most recent of 5 results within the time period is included. pH, arterial 7.52 (H) 7.35 - 7.45 [facility] DEPARTMENT OF PATHOLOGY AND GENOMIC MEDICINE pCO2, arterial 31 (L) 35 - 45 mmHg [facility] DEPARTMENT OF PATHOLOGY AND GENOMIC MEDICINE pO2, arterial 84 80 - 90 mmHg [facility] DEPARTMENT OF PATHOLOGY AND GENOMIC MEDICINE Bicarbonate, 26.8 21.0 - 28.0 mmol/L [facility] arterial DEPARTMENT OF PATHOLOGY AND GENOMIC MEDICINE Base excess, 3 (H) -2 - 2 mEq/L [facility] arterial DEPARTMENT OF PATHOLOGY AND GENOMIC MEDICINE O2 saturation, 97 95 - 100 % [facility] arterial DEPARTMENT OF PATHOLOGY AND GENOMIC MEDICINE FiO2, inspired 50 % [facility] O2% DEPARTMENT OF PATHOLOGY AND GENOMIC MEDICINE Specimen Blood Performing Organization Address [facility] Phone Number [address] [place] [address] PATHOLOGY AND [facility] * Blood culture, aerobic & anaerobic (06/21/2018 5:00 AM CDT) Only the most recent of 6 results within the time period is included. Blood culture No growth after 5 days of [facility] DEPARTMENT isolate incubation. OF PATHOLOGY Comment: AND GENOMIC Specimen Information MEDICINE Specimen Source: Blood Specimen Site: Peripheral Arm Right Specimen Blood Performing Organization Address City/State/Zipcode Phone Number [facility] DEPARTMENT OF [address] [place] [address] PATHOLOGY AND GENOMIC MEDICINE * Vancomycin level, random (06/20/2018 8:00 AM CDT) Only the most recent of 6 results within the time period is included. Pathologist [facility] Vancomycin, 17.2 ug/mL [facility] random DEPARTMENT OF PATHOLOGY AND GENOMIC MEDICINE Specimen Serum Performing Organization Address City/[facility] Phone Number [facility] [place] [address] [place] [address] PATHOLOGY AND GENOMIC MEDICINE * Sputum culture (06/19/2018 8:50 PM CDT) Only the most recent of 2 results within the time period is included. Sputum culture No normal oral tiffany isolated. [facility] DEPARTMENT isolate (A) OF PATHOLOGY Comment: AND GENOMIC Specimen Information MEDICINE Specimen Source: Tracheal aspirate Specimen Site: Not otherwise specified Sputum culture Pseudomonas aeruginosa [facility] DEPARTMENT isolate Many OF PATHOLOGY (A) AND GENOMIC MEDICINE Specimen Tracheal aspirate - Not otherwise specified Antibiotic Method Susceptibility Organism Amikacin JOVAN <=4 mcg/mL: Susceptible Pseudomonas aeruginosa Aztreonam JOVAN 16 mcg/mL: Resistant Pseudomonas aeruginosa Ceftazidime JOVAN >16 mcg/mL: Resistant Pseudomonas aeruginosa Ciprofloxacin JOVAN <=0.5 mcg/mL: Susceptible Pseudomonas aeruginosa Cefepime JOVAN 8 mcg/mL: Susceptible Pseudomonas aeruginosa Gentamicin JOVAN 2 mcg/mL: Susceptible Pseudomonas aeruginosa Imipenem JOVAN 1 mcg/mL: Susceptible Pseudomonas aeruginosa Levofloxacin JOVAN <=1 mcg/mL: Susceptible Pseudomonas aeruginosa Meropenem JOVAN 0.5 mcg/mL: Susceptible Pseudomonas aeruginosa Tobramycin JOVAN 1 mcg/mL: Susceptible Pseudomonas aeruginosa Piperacillin/Tazobactam JOVAN 64/4 mcg/mL: Resistant Pseudomonas aeruginosa Performing Organization Address City/[facility]/Zipcode Phone Number [facility] DEPARTMENT OF [address] [place] [address] PATHOLOGY AND GENOMIC MEDICINE * Gram stain (06/19/2018 8:50 PM CDT) Only the most recent of 3 results within the time period is included. Gram stain Many WBC's [facility] DEPARTMENT isolate Many Gram negative rods OF PATHOLOGY Comment: AND GENOMIC Specimen Information MEDICINE Specimen Source: Tracheal aspirate Specimen Site: Not otherwise specified Specimen Tracheal aspirate - Not otherwise specified Performing Organization Address [facility] Phone Number [facility] DEPARTMENT OF [address] [place] [address] PATHOLOGY AND GENOMIC MEDICINE * Ammonia level (06/19/2018 4:40 AM CDT) Only the most recent of 2 results within the time period is included. Ammonia 60 16 - 60 umol/L [facility] DEPARTMENT OF PATHOLOGY AND GENOMIC MEDICINE Specimen Blood Performing Organization Address [facility] Phone Number [facility] DEPARTMENT OF [address] [place] [address] [place] [address] PATHOLOGY AND GENOMIC MEDICINE * Manual differential (06/18/2018 5:15 AM CDT) Only the most recent of 5 results within the time period is included. Pathologist [facility] Manual PERFORMED [facility] differential DEPARTMENT OF PATHOLOGY AND GENOMIC MEDICINE Neutrophils 88.0 (H) 39.0 - 69.0 % [facility] DEPARTMENT OF PATHOLOGY AND GENOMIC MEDICINE Lymphocytes 7.0 (L) 25.0 - 45.0 % [facility] DEPARTMENT OF PATHOLOGY AND GENOMIC MEDICINE Monocytes 5.0 0.0 - 10.0 % [facility] DEPARTMENT OF PATHOLOGY AND GENOMIC MEDICINE Eosinophils 0.0 0.0 - 5.0 % [facility] DEPARTMENT OF PATHOLOGY AND GENOMIC MEDICINE Basophils 0.0 0.0 - 1.0 % [facility] DEPARTMENT OF PATHOLOGY AND GENOMIC MEDICINE Metamyelocytes 0 % [facility] DEPARTMENT OF PATHOLOGY AND GENOMIC MEDICINE Promyelocytes 0 % [facility] DEPARTMENT OF PATHOLOGY AND GENOMIC MEDICINE Platelet slide Decreased (A) [facility] review DEPARTMENT OF PATHOLOGY AND GENOMIC MEDICINE Anisocytosis Moderate [facility] DEPARTMENT OF PATHOLOGY AND GENOMIC MEDICINE Target cells Moderate (A) [facility] DEPARTMENT OF PATHOLOGY AND GENOMIC MEDICINE Ovalocytes Moderate [facility] DEPARTMENT OF PATHOLOGY AND GENOMIC MEDICINE Specimen Performing Organization Address [facility] Phone Number [facility] OF [address] [place] [address] [place] [address] PATHOLOGY AND GENOMIC MEDICINE * Lactic acid level (06/18/2018 5:15 AM CDT) Only the most recent of 4 results within the time period is included. Lactic acid 1.6 0.5 - 2.2 mmol/L [facility] DEPARTMENT OF PATHOLOGY AND GENOMIC MEDICINE Specimen Plasma specimen Performing Organization Address [facility]/Zipcode [place] [address] [place] [address] PATHOLOGY AND GENOMIC MEDICINE * XR Abdomen 1 Vw Portable (06/17/2018 6:34 PM CDT) Specimen Narrative Performed At EXAMINATION:XR ABDOMEN 1 VW PORTABLE [facility] CLINICAL HISTORY:distended COMPARISON:None. FINDINGS: The bones appear unremarkable. The abdominal gas pattern is nonspecific. Some opaque material projects over the kidneys. A multilumen central catheter projects over the right and femoral iliac systems. This suggests a dialysis catheter. A nasogastric tube projects with its tip in the stomach. Consolidation in the left lower lobe is present probably largely atelectatic. IMPRESSION: 1. Nasogastric tube projects with tip in the stomach. 2. There is atelectasis at the left lung base. 3. Right-sided femoral/iliac catheter probably venous. 4. The abdominal gas pattern is nonspecific [id number] Procedure Note Interface, Radiology Results Incoming - 06/17/2018 6:48 PM CDT EXAMINATION: XR ABDOMEN 1 VW PORTABLE CLINICAL HISTORY: distended COMPARISON: None. FINDINGS: The bones appear unremarkable. The abdominal gas pattern is nonspecific. Some opaque material projects over the kidneys. A multilumen central catheter projects over the right and femoral iliac systems. This suggests a dialysis catheter. A nasogastric tube projects with its tip in the stomach. Consolidation in the left lower lobe is present probably largely atelectatic. IMPRESSION: 1. Nasogastric tube projects with tip in the stomach. 2. There is atelectasis at the left lung base. 3. Right-sided femoral/iliac catheter probably venous. 4. The abdominal gas pattern is nonspecific [id number] Performing Organization Address [facility]/Zipcode Phone Number [facility] [address] [place] [address] * Cv electrophysiology procedure (06/17/2018 4:55 PM CDT) Specimen Narrative Performed At [facility] Successfully place a temporary transvenous pacer catheter in the RV. Performing Organization Address City/[facility]/Zipcode Phone Number [facility] [address] [place] [address] * Troponin (06/17/2018 2:15 PM CDT) Only the most recent of 4 results within the time period is included. Troponin 0.399 (H) 0.000 - 0.300 ng/mL [facility] Comment: DEPARTMENT OF 0.30 - 1.49 PATHOLOGY AND ng/mlMay GENOMIC indicate increased risk of MEDICINE acute coronary syndrome. >=1.5 ng/ml Consistent with acute myocardial infarction. The diagnostic value of a single normal or non-diagnostic result is questionable.Serial samples at 2-6 hour intervals are required to rule out acute myocardial injury. Specimen Plasma specimen Performing Organization Address City/[facility]/Zipcode Phone Number [facility] [place] [address] [place] [address] PATHOLOGY AND GENOMIC MEDICINE * ECG 12 lead (06/17/2018 11:32 AM CDT) Only the most recent of 3 results within the time period is included. Ventricular 45 [facility] rate Atrial rate 70 [facility] QRSD interval 108 [facility] QT interval 496 [facility] QTC interval 429 [facility] P axis 1 90 [facility] QRS axis 1 -29 [facility] T wave axis 37 [facility] EKG impression Sinus rhythm with 2nd degree [facility] AV block (Mobitz I)-Minimal voltage criteria for LVH, may be normal variant-Abnormal ECG-In automated comparison with ECG of 15-JUN-2018 05:59,-Sinus rhythm has replaced Atrial fibrillation-Vent. rate has decreased BY23 BPM- Specimen Performing Organization Address City/[facility] Phone Number [facility] [address] [place] [address] * Procalcitonin (06/16/2018 4:50 PM CDT) Procalcitonin 10.32 (H) <=0.07 ng/mL [facility] Comment: INTERPRETIVE INFORMATION: Procalcitonin Effective May 30, 2018, this test is performed by the [employer] Procalcitonin assay. A correction has been applied to optimize cutoff's established for the [employer] PCT sensitive Kryptor assay. Procalcitonin > 2.00 ng/mL: Procalcitonin levels above 2.00 ng/mL on the first day of ICU admission represent a high risk for progression to severe sepsis and/or septic shock. Procalcitonin < 0.50 ng/mL: Procalcitonin levels below 0.50 ng/mL on the first day of ICU admission represent a low risk for progression to severe sepsis and/or septic shock. If the procalcitonin measurement is performed shortly after the systemic infection process has started (usually less than 6 hours), these values may still be low. As various non-infectious conditions are known to induce procalcitonin as well, procalcitonin levels between 0.5 ng/mL and 2.00 ng/mL should be reviewed carefully to take into account the specific clinical background and condition(s) of the individual patient. Performed at: [facility] [address] [facility] [address] Specimen Serum Performing Organization Address City/[facility] Phone Number [facility] [address] [place] [address] * Insert arterial line (06/15/2018 4:52 PM CDT) Narrative Performed At José Miguel Blanco MD 06/15/20184:53 PM Arterial Line Insertion Date/Time: 06/15/2018 4:52 PM Performed by: JOSÉ MIGUEL BLANCO Authorized by: JOSÉ MIGUEL BLANCO Consent: Consent obtained:Verbal Consent given by:Spouse Risks discussed:Bleeding, pain, infection, ischemia and repeat procedure Indications: Indications: hemodynamic monitoring and multiple ABGs Pre-procedure details: Skin preparation:2% Chlorhexidine Preparation: Patient was prepped and draped in sterile fashion Anesthesia (see MAR for exact dosages): Anesthesia method:Local infiltration Local anesthetic:Lidocaine 1% w/o epi Procedure details: Location:L femoral Needle gauge:18 G Placement technique:Ultrasound guided and Seldinger Number of attempts:3 Transducer: waveform confirmed Post-procedure details: Post-procedure:Sterile dressing applied and sutured CMS:Unchanged Patient tolerance of procedure:Tolerated well, no immediate complications Comments: BAIT MAKER assisted with procedure. * Hepatitis B surface antigen (06/15/2018 2:05 PM CDT) Hepatitis B Nonreactive Non-reactive [facility] surface Ag DEPARTMENT OF PATHOLOGY AND GENOMIC MEDICINE Specimen Blood Performing Organization Address City/[facility]/Zipcode Phone Number [facility] DEPARTMENT [facility] [place] [address] PATHOLOGY AND GENOMIC MEDICINE * INTUBATION (06/15/2018 10:50 AM CDT) Narrative Performed At José Miguel Blanco MD 06/15/2018 10:52 AM Intubation Date/Time: 06/15/2018 10:50 AM Performed by: JOSÉ MIGUEL BLANCO Authorized by: JOSÉ MIGUEL BLANCO Consent: Consent obtained:Verbal and emergent situation Consent given by:Spouse Risks discussed:Aspiration, bleeding, , brain injury, dental trauma, hypoxia, pneumothorax and laryngeal injury Alternatives discussed:No treatment, delayed treatment and alternative treatment [place] protocol: Procedure explained and questions answered to patient or proxy's satisfaction: yes Relevant documents present and verified: yes Test results available and properly labeled: yes Imaging studies available: yes Required blood products, implants, devices, and special equipment available: yes Site/side marked: yes Immediately prior to procedure, a time out was called: yes Patient identity confirmed:Arm band and hospital-assigned identification number Pre-procedure details: Patient status:Altered mental status Mallampati score:3 Pretreatment medications:None Induction:Etomidate Paralytics:Rocuronium Procedure details: Preoxygenation:BiPAP CPR in progress: no Intubation method:Oral Technique:Video laryngoscopy Laryngoscope blade:Mac 4 Grade view:2 Difficult airway?: No Tube size (mm):8.0 Tube type:Cuffed Number of attempts:1 Tube visualized through cords: yes Placement assessment: ETT to teeth:25 Tube secured with:ETT summers Breath sounds:Equal Placement verification: chest rise, condensation, direct visualization, equal breath sounds, ETCO2 detector and tube exhalation Post-procedure details: Patient tolerance of procedure:Tolerated well, no immediate complications * US Abdomen Complete (06/15/2018 8:58 AM CDT) Specimen Narrative Performed At Examination: US ABDOMEN COMPLETE [facility] Clinical history: renal failure and cirrhosis Comparison: CT abdomen and pelvis dated 06/14/2018 Impression:Transverse and longitudinal sonographic images were obtained through the abdomen. 1.The gallbladder is distended but there is no evidence of gallbladder wall thickening, stones, or pericholecystic fluid. This is nonspecific and may be secondary to the fasting state. If there is clinical suspicion for acalculous cholecystitis, a HIDA scan can be performed.The common ductis normal in caliber measuring up to 6 mm. 2.Hepatomegaly with fatty infiltration of the liver and evidence of cirrhosis. No focal liver lesion is visualized.The spleen is enlarged measuring up to 18 cm. 3.The right kidney measures 13.6 and left kidney 15.0 cm in length. The kidneys demonstrate a normal sonographic appearance. 4.The visualized pancreas, abdominal aorta, and inferior vena cava are unremarkable. 5.There is no suspicious fluid. [id number] Procedure Note Hm Interface, Radiology Results Incoming - 06/15/2018 9:05 AM CDT Examination: US ABDOMEN COMPLETE Clinical history: renal failure and cirrhosis Comparison: CT abdomen and pelvis dated 06/14/2018 Impression: Transverse and longitudinal sonographic images were obtained through the abdomen. 1. The gallbladder is distended but there is no evidence of gallbladder wall thickening, stones, or pericholecystic fluid. This is nonspecific and may be secondary to the fasting state. If there is clinical suspicion for acalculous cholecystitis, a HIDA scan can be performed. The common duct is normal in caliber measuring up to 6 mm. 2. Hepatomegaly with fatty infiltration of the liver and evidence of cirrhosis. No focal liver lesion is visualized. The spleen is enlarged measuring up to 18 cm. 3. The right kidney measures 13.6 and left kidney 15.0 cm in length. The kidneys demonstrate a normal sonographic appearance. 4. The visualized pancreas, abdominal aorta, and inferior vena cava are unremarkable. 5. There is no suspicious fluid. [id number] Performing Organization Address City/[facility] Phone Number [facility] [address] [place] [address] * Hemoglobin A1c (06/15/2018 4:10 AM CDT) Hemoglobin A1C 4.9 4.0 - 6.0 % [facility] Comment: DEPARTMENT OF PATHOLOGY AND GENOMIC Less than 6% - MEDICINE Goal of therapy for Type II Diabetes Less than 7%-Goal of therapy for Type I Diabetes Less than 8%-Accepta ble control for Type I or Type II Diabetes Greater than 8%-Unacceptabl e control; action indicated. ([id number]) Specimen Blood Performing Organization Address City/[facility]/Zipcode Phone Number [facility] DEPARTMENT OF [address] [place] [address] [place] [address] PATHOLOGY AND GENOMIC MEDICINE * B natriuretic peptide (06/14/2018 8:35 PM CDT) BNP 1,757 (H) 0 - 100 pg/mL [facility] DEPARTMENT OF PATHOLOGY AND GENOMIC MEDICINE Specimen Blood Performing Organization Address City/State/Zipcode Phone Number [facility] DEPARTMENT OF [facility] [place] [address] PATHOLOGY AND GENOMIC MEDICINE * Pv duplex venous lower extremity (06/14/2018 5:55 PM CDT) Specimen Narrative Performed At [facility] No evidence of venous thrombosis is present in the lower extremities. Mild deep venous reflux is seen in both legs. Performing Organization Address City/State/Zipcode Phone Number [facility] [address] [place] [address] * Echocardiogram complete w contrast and 3D if needed (06/14/2018 5:40 PM CDT) Velocity Ratio 0.87 m/s [facility] (V1/V2) IVS,d 1.27 cm [facility] Ao root annulus 3.75 cm [facility] EF 64.15 % [facility] LA volume 68.0 cm3 [facility] LVPWD,d 1.04 cm [facility] AoV Mean PG 5.34 mmHg [facility] AV LVOT peak 7.28 mmHg [facility] gradient MV valve area p 4.79 cm2 [facility] 1/2 method E/A ratio 1.27 [facility] E wave 123.43 msec [facility] decelartion time LVOT Diam,S 2.45 cm [facility] LVOT area 4.71 cm2 [facility] LVOT Vmax 1.35 m/s [facility] LVOT VTI 0.27 m [facility] AoV Peak PG 9.64 mmHg [facility] MV Peak E Rupert 0.95 m/s [facility] MV stenosis 45.89 ms [facility] pressure 1/2 time MV Peak A Rupert 0.75 m/s [facility] LV Vol,s A2C 25.82 mL [facility] LV Vol,d A2C 69.96 mL [facility] AoV Area, Vmax 4.10 cm2 [facility] AoV Area, VTI 3.89 cm2 [facility] AoV Vmax 1.55 m/s [facility] LA Area d A4C 58 cm2 [facility] LV,d 5.26 cm [facility] LV,s 3.41 cm [facility] LV Vol,d A4C 111.48 ml [facility] LV Vol,s A4C 37.14 ml [facility] RVSP (TR) 35.44 mmHg [facility] TR Vpeak 2.76 mm/s [facility] MV E A ratio 1.26 mmHg [facility] RA pressure 5.00 mmHg [facility] TR pk grad 30.44 mmHg [facility] RVSP 35.44 mmHg [facility] LV SYS VOL 47.64 ml [facility] LV DELUCA VOL 132.89 ml [facility] LA diam s 5.80 cm [facility] LA Vol MOD A4C 58.42 ml [facility] LV SV Teich 2D 85.25 ml [facility] LVOT SI 56.00 ml/m2 [facility] AoV Cusp sep 2.14 [facility] Aortic Root 3.80 cm [facility] AoV Vmn 1.09 [facility] IVS s 2D 1.39 [facility] LA Ao Ratio 1.54 [facility] Mmode D E excurs 2.00 [facility] E f slope 0.12 [facility] E prime lat 0.15 [facility] E vasile sept 0.13 [facility] PV acc T slope 4.80 [facility] PV AT 121.11 msec [facility] AoV VTI 0.33 m [facility] LV EF,A2C 63.09 % [facility] LV EF,A4C 66.69 % [facility] LV EF,BP 64.60 % [facility] Levi Hollister,d A2C 8.37 cm [facility] Levi Hollister,d A4C 8.04 cm [facility] Levi Hollister,s A2C 5.96 cm [facility] Levi Hollister,s A4C 6.25 cm [facility] LV SV,A2C 44.14 % [facility] LV SV,A4C 74.35 % [facility] LV Vol,d BP 89.48 ml [facility] LV Vol,s BP 31.68 nl [facility] LVOT Vmn 1.08 [facility] Pt Size 177.80 [facility] Pt Wt 108.86 [facility] LVOT mean grad 4.95 mmHg [facility] LVPW s PLAX 1.55 cm [facility] MV Decel slope 7.71 m/s2 [facility] Specimen Narrative Performed At [facility] The left ventricle chamber size is normal. Left Ventricular ejection fraction is 60 - 65%. Left atrium size is moderately dilated. No pericardial effusion Performing Organization Address City/State/Zipcode Phone Number [facility] [address] [place] [address] * CT Abdomen Pelvis Wo Contrast (06/14/2018 4:52 PM CDT) Specimen Narrative Performed At EXAMINATION:CT ABDOMEN PELVIS WO CONTRAST [facility] CLINICAL HISTORY:Abd distension, Abd painunspecified, Ascites TECHNIQUE: Multiple axial images of the abdomen and pelvis were obtained without intravenous administration of iodinated contrast. Sagittal and coronal computerized reformatted images were also obtained. The lack of intravenous contrast reduces the sensitivity of detecting solid organ disease. CT imaging was performed with iterative reconstruction technique and/or automated exposure control to reduce radiation dose. COMPARISON:None. FINDINGS: Moderate cardiomegaly. Coronary artery calcification. Atherosclerosis of aorta. Lung bases clear. No free intraperitoneal air or fluid Abdomen: The liver is of decreased attenuation in keeping with fatty infiltrate. There are scattered punctate benign granulomatous changes throughout the liver. No obvious mass on noncontrast sequences. The liver is enlarged to 19.7 cm. Spleen is enlarged to 18.2 cm. Varices about the splenic hilum and in the region of the falciform ligament with recanalization of the umbilical vein. Mild thickening of the adrenal gland in keeping with hyperplasia. No focal adrenal mass. Somewhat ptotic appearing kidneys bilaterally. No evidence of renal mass or calculus. No hydronephrosis on either side. Abdominal aorta normal caliber with moderate atherosclerotic change. No periaortic adenopathy. Moderate fecal material throughout the colon. No bowel obstruction the abdomen. No ascites. Gallbladder is mildly distended. No biliary dilatation evident. Pancreas is somewhat atrophic in appearance without focal abnormality on limited noncontrast exam. Pelvis: Moderate atherosclerotic change at the iliac bifurcation levels. Common iliac arteries aneurysmal in appearance measuring approximately 2.4 cm in diameter. Moderate fecal material throughout the colon. No diverticulitis or bowel obstruction. Scattered diverticulosis. The appendix is not identified. There is no pelvic sidewall adenopathy. No mass or free fluid. Bladder is underdistended. Prostate normal size. Bilateral fat-containing inguinal hernias. Mild degenerative changes throughout the visualized spine. No compressive abnormality. No lytic or blastic bone lesions. IMPRESSION: Hepatosplenomegaly Fatty infiltration of liver. 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 Mildly distended gallbladder. Cardiomegaly Atherosclerosis of the aorta and coronary arteries. Aneurysmal dilatation of each common iliac artery to 2.4 cm. Bilateral fat-containing inguinal hernias. Diverticular changes in the left colon without evidence of diverticulitis. Nonvisualization of the appendix No tract calculi Atrophic appearing pancreas [id number] Procedure Note Hm Interface, Radiology Results Incoming - 06/14/2018 5:13 PM CDT EXAMINATION: CT ABDOMEN PELVIS WO CONTRAST CLINICAL HISTORY: Abd distension, Abd pain unspecified, Ascites TECHNIQUE: Multiple axial images of the abdomen and pelvis were obtained without intravenous administration of iodinated contrast. Sagittal and coronal computerized reformatted images were also obtained. The lack of intravenous contrast reduces the sensitivity of detecting solid organ disease. CT imaging was performed with iterative reconstruction technique and/or automated exposure control to reduce radiation dose. COMPARISON: None. FINDINGS: Moderate cardiomegaly. Coronary artery calcification. Atherosclerosis of aorta. Lung bases clear. No free intraperitoneal air or fluid Abdomen: The liver is of decreased attenuation in keeping with fatty infiltrate. There are scattered punctate benign granulomatous changes throughout the liver. No obvious mass on noncontrast sequences. The liver is enlarged to 19.7 cm. Spleen is enlarged to 18.2 cm. Varices about the splenic hilum and in the region of the falciform ligament with recanalization of the umbilical vein. Mild thickening of the adrenal gland in keeping with hyperplasia. No focal adrenal mass. Somewhat ptotic appearing kidneys bilaterally. No evidence of renal mass or calculus. No hydronephrosis on either side. Abdominal aorta normal caliber with moderate atherosclerotic change. No periaortic adenopathy. Moderate fecal material throughout the colon. No bowel obstruction the abdomen. No ascites. Gallbladder is mildly distended. No biliary dilatation evident. Pancreas is somewhat atrophic in appearance without focal abnormality on limited noncontrast exam. Pelvis: Moderate atherosclerotic change at the iliac bifurcation levels. Common iliac arteries aneurysmal in appearance measuring approximately 2.4 cm in diameter. Moderate fecal material throughout the colon. No diverticulitis or bowel obstruction. Scattered diverticulosis. The appendix is not identified. There is no pelvic sidewall adenopathy. No mass or free fluid. Bladder is underdistended. Prostate normal size. Bilateral fat-containing inguinal hernias. Mild degenerative changes throughout the visualized spine. No compressive abnormality. No lytic or blastic bone lesions. IMPRESSION: Hepatosplenomegaly Fatty infiltration of liver. 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 Mildly distended gallbladder. Cardiomegaly Atherosclerosis of the aorta and coronary arteries. Aneurysmal dilatation of each common iliac artery to 2.4 cm. Bilateral fat-containing inguinal hernias. Diverticular changes in the left colon without evidence of diverticulitis. Nonvisualization of the appendix No tract calculi Atrophic appearing pancreas [id number] Performing Organization Address City/[facility]/Zipcode Phone Number [facility] [address] [place] [address] * Lactic acid level, SEPSIS - Now and repeat 2x every 3 hours (06/14/2018 2:42 PM CDT) Only the most recent of 3 results within the time period is included. Lactic acid 2.8 (H) 0.5 - 2.2 mmol/L [facility] DEPARTMENT OF PATHOLOGY AND GENOMIC MEDICINE Specimen Plasma specimen Performing Organization Address City/[facility] Phone Number [facility] DEPARTMENT [address] [place] [address] PATHOLOGY AND GENOMIC MEDICINE * CT Head Wo Contrast (06/14/2018 10:16 AM CDT) Specimen Narrative Performed At [facility]AMIN[facility]ams COMPARISON:None. TECHNIQUE: Noncontrast head CT performed using radiation dose reduction techniques.Technical factors are evaluated and adjusted to ensure appropriate moderation of exposure.Automated dose management technology is applied to adjust radiation exposure while achieving a diagnostic quality image. FINDINGS: No evidence of acute intracranial hemorrhage, mass, mass effect, midline shift, or acute infarct. Ventricles and sulci are normal in appearance for patient's age.Basal cisterns are clear. Calcifications carotid siphons and intracranial vertebral arteries. Calvarium is intact. Orbits are normal in appearance. Minimal scattered paranasal sinus mucosal thickening. Mastoid air cells are clear. IMPRESSION: 1. No CT evidence of acute intracranial abnormality. [id number] Procedure Note Interface, Radiology Results Incoming - 06/14/2018 10:21 AM CDT EXAMINATION: CT HEAD WO CONTRAST CLINICAL HISTORY: ams COMPARISON: None. TECHNIQUE: Noncontrast head CT performed using radiation dose reduction techniques. Technical factors are evaluated and adjusted to ensure appropriate moderation of exposure. Automated dose management technology is applied to adjust radiation exposure while achieving a diagnostic quality image. FINDINGS: No evidence of acute intracranial hemorrhage, mass, mass effect, midline shift, or acute infarct. Ventricles and sulci are normal in appearance for patient's age. Basal cisterns are clear. Calcifications carotid siphons and intracranial vertebral arteries. Calvarium is intact. Orbits are normal in appearance. Minimal scattered paranasal sinus mucosal thickening. Mastoid air cells are clear. IMPRESSION: 1. No CT evidence of acute intracranial abnormality. [id number] Performing Organization Address City/[facility]/Zipcode Phone Number [facility] [address] [place] [address] * Venous blood gas (06/14/2018 9:18 AM CDT) [facility] pH, venous 7.35 7.32 - 7.42 [facility] DEPARTMENT OF PATHOLOGY AND GENOMIC MEDICINE pCO2, venous 44 (L) 45 - 51 mmHg [facility] DEPARTMENT OF PATHOLOGY AND GENOMIC MEDICINE pO2, venous 24 (L) 25 - 40 mmHg [facility] DEPARTMENT OF PATHOLOGY AND GENOMIC MEDICINE Base excess, -1 -2 - 2 meq/L [facility] venous DEPARTMENT OF PATHOLOGY AND GENOMIC MEDICINE O2 saturation, 33 (L) 40 - 70 % [facility] venous DEPARTMENT OF PATHOLOGY AND GENOMIC MEDICINE Bicarbonate, 22.4 21.0 - 28.0 mmol/L [facility] venous DEPARTMENT OF PATHOLOGY AND GENOMIC MEDICINE FiO2, inspired Unknown % [facility] O2% DEPARTMENT OF PATHOLOGY AND GENOMIC MEDICINE Specimen Blood Performing Organization Address City/[facility]/Zipcode Phone Number [address] [place] [address] PATHOLOGY AND GENOMIC MEDICINE * Urinalysis screen and microscopy, with reflex to culture (06/14/2018 9:09 AM CDT) [facility] Specimen site Clean catch [facility] DEPARTMENT OF PATHOLOGY AND GENOMIC MEDICINE Color, UA Janeen [facility] DEPARTMENT OF PATHOLOGY AND GENOMIC MEDICINE Appearance, UA Cloudy [facility] DEPARTMENT OF PATHOLOGY AND GENOMIC MEDICINE Specific 1.020 1.001 - 1.035 [facility] gravity, DEPARTMENT OF PATHOLOGY AND GENOMIC MEDICINE pH, UA 5.0 5.0 - 8.5 [facility] DEPARTMENT OF PATHOLOGY AND GENOMIC MEDICINE Protein, UA 2+ (A) Negative [facility] DEPARTMENT OF PATHOLOGY AND GENOMIC MEDICINE Glucose, UA Negative Negative [facility] DEPARTMENT OF PATHOLOGY AND GENOMIC MEDICINE Ketones, UA Negative Negative [facility] DEPARTMENT OF PATHOLOGY AND GENOMIC MEDICINE Bilirubin, UA 1+ Negative [facility] DEPARTMENT OF PATHOLOGY AND GENOMIC MEDICINE Blood, UA Large (A) Negative [facility] DEPARTMENT OF PATHOLOGY AND GENOMIC MEDICINE Nitrite, UA Negative Negative [facility] DEPARTMENT OF PATHOLOGY AND GENOMIC MEDICINE Urobilinogen, 4.0 (A) <2.0 [facility] DEPARTMENT OF PATHOLOGY AND GENOMIC MEDICINE Leukocyte Small (A) Negative [facility] esterase, DEPARTMENT OF PATHOLOGY AND GENOMIC MEDICINE Epithelial Many /HPF [facility] cells, UA DEPARTMENT OF PATHOLOGY AND GENOMIC MEDICINE Round Moderate 0 - 1 /HPF [facility] epithelial DEPARTMENT OF cells, PATHOLOGY AND GENOMIC MEDICINE WBC, UA 41-60 (H) 0 - 1 /HPF [facility] DEPARTMENT OF PATHOLOGY AND GENOMIC MEDICINE RBC, UA 21-40 (H) 0 - 5 /HPF [facility] DEPARTMENT OF PATHOLOGY AND GENOMIC MEDICINE Bacteria, UA None seen None seen [facility] DEPARTMENT OF PATHOLOGY AND GENOMIC MEDICINE Yeast, UA None seen [facility] DEPARTMENT OF PATHOLOGY AND GENOMIC MEDICINE Yeast with None seen [facility] pseudohyphae, DEPARTMENT OF UA PATHOLOGY AND GENOMIC MEDICINE Hyaline casts, >21 /LPF [facility] DEPARTMENT OF PATHOLOGY AND GENOMIC MEDICINE Specimen Urine Performing Organization Address City/[facility] Phone Number [facility] [id number] [place] [address] [place] [address] PATHOLOGY AND GENOMIC MEDICINE * Urine culture (06/14/2018 9:09 AM CDT) Urine culture Streptococcus group B [facility] DEPARTMENT isolate 10-4 cfu/ml OF PATHOLOGY (A) AND GENOMIC Comment: MEDICINE Specimen Information Specimen Source: Urine Specimen Site: Clean catch Urine culture Mixed Gram positive tiffany [facility] DEPARTMENT isolate 10-1 cfu/ml OF PATHOLOGY (A) AND GENOMIC MEDICINE Specimen Urine Performing Organization Address City/[facility]/Zipcode Phone Number [facility] [address] [place] [address] PATHOLOGY AND GENOMIC MEDICINE * Thyroid stimulating hormone (06/14/2018 8:21 AM CDT) TSH 5.60 (H) 0.27 - 4.20 uIU/mL [facility] DEPARTMENT OF PATHOLOGY AND GENOMIC MEDICINE Specimen Plasma specimen Performing Organization Address City/[facility]/Zipcode Phone Number [facility] [id number] [place] [address] [place] [address] PATHOLOGY AND GENOMIC MEDICINE * T4, free (06/14/2018 8:21 AM CDT) T4, free 1.70 0.90 - 1.70 ng/dL [facility] DEPARTMENT OF PATHOLOGY AND GENOMIC MEDICINE Specimen Plasma specimen Performing Organization Address [facility] Number [address] [place] [address] PATHOLOGY AND GENOMIC MEDICINE * T4 (06/14/2018 8:21 AM CDT) T4 7.6 4.5 - 11.7 ug/dL [facility] DEPARTMENT OF PATHOLOGY AND GENOMIC MEDICINE Specimen Plasma specimen Performing Organization Address [facility] Phone Number [address] [place] [address] PATHOLOGY AND GENOMIC MEDICINE * Lipase level (06/14/2018 8:21 AM CDT) Pathologist [facility] Lipase 8 (L) 13 - 60 U/L [facility] DEPARTMENT OF PATHOLOGY AND GENOMIC MEDICINE Specimen Plasma specimen Performing Organization Address [facility] Phone Number [address] [place] [address] PATHOLOGY AND GENOMIC MEDICINE * Creatine kinase, total (CPK) (06/14/2018 8:21 AM CDT) Pathologist [facility] Creatine kinase 255 39 - 308 U/L [facility] DEPARTMENT OF PATHOLOGY AND GENOMIC MEDICINE Specimen Plasma specimen Performing Organization Address [facility] Phone Number [address] [place] [address] PATHOLOGY AND GENOMIC MEDICINE * ECG ED Preliminary Interpretation - NOT AN ORDER (06/14/2018 8:06 AM CDT) Narrative Performed At Celestino Ruiz MD 06/15/20188:19 AM ECG ED Preliminary Interpretation - Not an Order Performed by: CELESTINO RUIZ Authorized by: CELESTINO RUIZ ECG reviewed by ED Physician in the absence of a homoeopath: yes Interpretation: Interpretation: non-specific Rate: ECG rate:68 ECG rate assessment: normal Rhythm: Rhythm: sinus rhythm and A-V block Rhythm comment:Mobitz I QRS: QRS axis:Normal Conduction: Conduction: normal ST segments: ST segments:Non-specific T waves: T waves: non-specific * CRITICAL CARE (06/14/2018 8:06 AM CDT) Narrative Performed At Celestino Ruiz MD 06/15/20188:19 AM Critical Care Performed by: CELESTINO RUIZ Authorized by: CELESTINO RUIZ Critical care provider statement: Critical care time (minutes):35 Critical care was necessary to treat or prevent imminent or life-threatening deterioration of the following conditions:Renal failure Critical care was time spent personally by me on the following activities:Blood draw for specimens, development of treatment plan with patient or surrogate, discussions with consultants, discussions with primary provider, examination of patient, evaluation of patient's response to treatment, interpretation of cardiac output measurements, obtaining history from patient or surrogate, review of old charts, re-evaluation of patient's condition, ordering and review of radiographic studies, ordering and review of laboratory studies and ordering and performing treatments and interventions Jarocho 'yes' if you are taking over critical care for this patient from another provider.: no * CENTRAL LINE (06/14/2018 8:06 AM CDT) Narrative Performed At Celestino Ruiz MD 06/15/20188:19 AM Central Line Performed by: CELESTINO RUIZ Authorized by: CELESTINO RUIZ Consent: Consent obtained:Written Consent given by:Patient Risks discussed:Arterial puncture, bleeding, infection, incorrect placement, nerve damage and pneumothorax Alternatives discussed:No treatment [place] protocol: Patient identity confirmed:Verbally with patient Pre-procedure details: Hand hygiene: Hand hygiene performed prior to insertion Sterile barrier technique: All elements of maximal sterile technique followed Skin preparation:ChloraPrep Anesthesia (see MAR for exact dosages): Anesthesia method:Local infiltration Local anesthetic:Lidocaine 1% w/o epi Procedure details: Catheter type:Triple lumen Catheter size:7 Fr Catheter length (cm):20 Catheter site: internal jugular vein Catheter Site Laterality:Left Site selection rationale:Attempted R but unable to fully insert Patient position:Trendelenburg Landmarks identified: yes Ultrasound guidance: yes Sterile ultrasound techniques: Sterile gel and sterile probe covers were used Number of attempts:1 Successful placement: yes (Due to morbid obesity, unable reach IVC; in innominate vein) Post-procedure details: Post-procedure:Dressing applied and line sutured Assessment:Blood return through all ports and no pneumothorax on x-ray (Tip in innominate vein) Patient tolerance of procedure:Tolerated well, no immediate complications after 06/12/2018 Insurance Type Payer Benefit Subscriber ID Effective Phone Address Plan / Dates Group HMO/PPO [facility] xxxxxxxxx [id number] THCARE resent CHOICE/CHO ICE + Advance Directives Patient has advance care planning documents on file. For more information, amina bowman contact: Kirill Harris [address] [place] [address]
--- OUTSIDE RECORDS SUMMARY | 2019-06-13 08:47 | XMS REPORT ---
Author Author [facility] Address Unknown Phone Unavailable Care Team Providers Care Harness Tier Name Role Phone Unavailable Unavailable Payers Payer Name Policy Type Policy Number Effective Date Expiration Date Problems This patient has no known problems. Allergies, Adverse Reactions, Alerts Allergy Name Allergy Type Status Severity Reaction(s) Onset Date Inactive Date Treating Clinician Comments Penicillins DA Active U 2019-04-05 00:00:00 cephalexin DA Active MO 2019-04-05 00:00:00 latex DA Active [place] 2019-04-05 00:00:00 Penicillins DA Active U 2018-10-04 00:00:00 cephalexin DA Active MO 2018-10-01 00:00:00 latex DA Active [place] 2018-10-01 00:00:00 cephalexin DA Active MO 2018-09-07 00:00:00 latex DA Active [place] 2018-09-05 00:00:00 latex DA Active [place] 2018-07-18 00:00:00 Medications This patient has no known medications. Results Test Description Test Time Test Comments Text Results Atomic Results Result Comments GLUBED 2019-05-15 15:01:00 GLUBED (test code=GLUBED) 133 MG/DL 70-110 Performed by certified electric tripper machine operator at [facility] [id number] 15:01:00* Test Item Value Reference Range Comments GLUBED (test code=GLUBED) 115 MG/DL 70-110 Performed by certified electric tripper machine operator at [facility] [id number] 15:00:00* Test Item Value Reference Range Comments GLUBED (test code=GLUBED) 129 MG/DL 70-110 Performed by certified electric tripper machine operator at [facility] [id number] 14:55:00* Test Item Value Reference Range Comments GLUBED (test code=GLUBED) 123 MG/DL 70-110 Performed by certified electric tripper machine operator at [facility] [id number] 14:40:00* Test Item Value Reference Range Comments GLUBED (test code=GLUBED) 125 MG/DL 70-110 Performed by certified electric tripper machine operator at [facility] [id number] 14:40:00* Test Item Value Reference Range Comments GLUBED (test code=GLUBED) 122 MG/DL 70-110 Performed by certified electric tripper machine operator at [facility] [id number] 14:39:00* Test Item Value Reference Range Comments GLUBED (test code=GLUBED) 115 MG/DL 70-110 Performed by certified electric tripper machine operator at [facility] [id number] 14:39:00* Test Item Value Reference Range Comments GLUBED (test code=GLUBED) 109 MG/DL 70-110 Performed by certified electric tripper machine operator at [facility] POC [id number] 13:35:50* Test Item Value Reference Range Comments pH Dale (test code=pH Dale) 7.45 7.00-7.70 pH Temp Juliette Dale (test code=pH Temp Juliette Dale) 7.45 pCO2 Dale (test code=pCO2 Dale) 41 mmHg 15-125 pCO2 Temp Juliette Dale (test code=pCO2 Temp Juliette Dale) 41 mmHg pO2 Dale (test code=pO2 Dale) 24 mmHg 30-420 L pO2 Temp Juliette Dale (test code=pO2 Temp Juliette Dale) 23.8 mmHg ctHb Dale (test code=ctHb Dale) 11.2 g/dL 7.0-25.0 O2 Sat Dale (test code=O2 Sat Dale) 34.5 % 20.0-100.0 FO2Hb Dale (test code=FO2Hb Dale) 33.6 % 0.0-100.0 FCOHb Dale (test code=FCOHb Dale) 1.3 % 0.0-20.0 FMetHb Dale (test code=FMetHb Dale) 1.4 % 0.0-20.0 HCO3 Dale (test code=HCO3 Dale) 28.7 mmol/L 22.0-26.0 L Hct Dale (test code=Hct Dale) 34 % 34-52 Na Dale (test code=Na Dale) 143 mmol/L 135-145 K Dale (test code=K Dale) 4.3 mmol/L 3.5-4.5 iCa Dale (test code=iCa Dale) 1.24 mmol/L 1.00-1.50 Cl Dale (test code=Cl Dale) 103 mmol/L 98-105 Glu Dale (test code=Glu Dale) 114 mg/dL 75-115 FiO2 Dale (test code=FiO2 Dale) 21 % Base Excess Dale (test code=Base Excess Dale) 4.4 Lactate Dale (test code=Lactate Dale) 1.6 mmol/L 0.5-2.2 Draw Site (test code=Draw Site) Other [id number] 20:39:00* Test Item Value Reference Range Comments GLUBED (test code=GLUBED) 117 MG/DL 70-110 Performed by certified electric tripper machine operator at [facility] [id number] 17:37:00* Test Item Value Reference Range Comments GLUBED (test code=GLUBED) 147 MG/DL 70-110 Performed by certified electric tripper machine operator at [facility] [id number] 17:37:00* Test Item Value Reference Range Comments GLUBED (test code=GLUBED) 117 MG/DL 70-110 Performed by certified electric tripper machine operator at [facility] [id number] 17:37:00* Test Item Value Reference Range Comments GLUBED (test code=GLUBED) 114 MG/DL 70-110 Performed by certified electric tripper machine operator at [facility] [id number] 17:37:00* Test Item Value Reference Range Comments GLUBED (test code=GLUBED) 116 MG/DL 70-110 Performed by certified electric tripper machine operator at [facility] [id number] 17:37:00* Test Item Value Reference Range Comments GLUBED (test code=GLUBED) 124 MG/DL 70-110 Performed by certified electric tripper machine operator at [facility] [id number] 17:36:00* Test Item Value Reference Range Comments GLUBED (test code=GLUBED) 97 MG/DL 70-110 Performed by certified electric tripper machine operator at [facility] [id number] 17:36:00* Test Item Value Reference Range Comments GLUBED (test code=GLUBED) 121 MG/DL 70-110 Performed by certified electric tripper machine operator at [facility] [id number] 17:36:00* Test Item Value Reference Range Comments GLUBED (test code=GLUBED) 142 MG/DL 70-110 Performed by certified electric tripper machine operator at [facility] [id number] 17:36:00* Test Item Value Reference Range Comments GLUBED (test code=GLUBED) 106 MG/DL 70-110 Performed by certified electric tripper machine operator at [facility]2019-05-14 17:36:00* Test Item Value Reference Range Comments GLUBED (test code=GLUBED) 114 MG/DL 70-110 Performed by certified electric tripper machine operator at [facility] [id number] 17:36:00* Test Item Value Reference Range Comments GLUBED (test code=GLUBED) 146 MG/DL 70-110 Performed by certified electric tripper machine operator at [facility] [id number] 17:36:00* Test Item Value Reference Range Comments GLUBED (test code=GLUBED) 117 MG/DL 70-110 Performed by certified electric tripper machine operator at [facility] [id number] 16:07:00* Test Item Value Reference Range Comments GLUBED (test code=GLUBED) 133 MG/DL 70-110 Performed by certified electric tripper machine operator at [facility] CBC W/AUTO [id number] 08:55:00* Test Item Value Reference Range Comments WHITE BLOOD CELL (test code=WBC) 3.67 x10 3/uL 4.5-11.0 RED BLOOD CELL (test code=RBC) 2.79 x10 6/uL 4.00-5.60 HEMOGLOBIN (test code=HGB) 8.7 g/dL 12.5-16.9 HEMATOCRIT (test code=HCT) 26.6 % 37.5-50.7 MEAN CELL VOLUME (test code=MCV) 95.3 fL 81.0-99.0 MEAN CELL HGB (test code=MCH) 31.2 pg 27.0-33.0 MEAN CELL HGB CONCETRATION (test code=MCHC) 32.7 g/dL 33.0-37.0 RED CELL DISTRIBUTION WIDTH CV (test code=RDW) 20.8 % 11.5-14.5 RED CELL DISTRIBUTION WIDTH SD (test code=RDW-SD) 72.7 fL 37.0-54.0 PLATELET COUNT (test code=PLT) 66 x10 3/uL 150-400 IMMATURE PLATELET FRACTION (test code=IPF) 2.3 % 0.9-11.2 MEAN PLATELET VOLUME (test code=MPV) 9.8 fL 7.0-9.0 NEUTROPHIL % (test code=NT%) 62.4 % 56.0-77.0 IMMATURE GRANULOCYTE % (test code=IG%) 0.8 % 0.0-2.0 LYMPHOCYTE % (test code=LY%) 14.4 % 14.0-32.0 MONOCYTE % (test code=MO%) 15.3 % 4.8-9.0 EOSINOPHIL % (test code=EO%) 5.7 % 0.3-3.7 BASOPHIL % (test code=BA%) 1.4 % 0.0-2.0 NUCLEATED RBC % (test code=NRBC%) 0.0 % 0-0 NEUTROPHIL # (test code=NT#) 2.29 x10 3/uL 2.0-7.6 IMMATURE GRANULOCYTE # (test code=IG#) 0.03 x10 3/uL 0.00-0.03 LYMPHOCYTE # (test code=LY#) 0.53 x10 3/uL 1.0-3.8 MONOCYTE # (test code=MO#) 0.56 x10 3/uL 0.1-0.8 EOSINOPHIL # (test code=EO#) 0.21 x10 3/uL 0.0-0.2 BASOPHIL # (test code=BA#) 0.05 x10 3/uL 0.0-0.2 NUCLEATED RBC # (test code=NRBC#) 0.00 x10 3/uL 0.0-0.1 MANUAL DIFF REQUIRED (test code=MDIFF) NO BASIC METABOLIC [id number] 07:35:00* Test Item Value Reference Range Comments SODIUM (test code=NA) 132 mEq/L 134-147 POTASSIUM (test code=K) 3.1 mEq/L 3.4-5.0 CHLORIDE (test code=CL) 100 mEq/L 100-108 CARBON DIOXIDE (test code=CO2) 23 mEq/L 21-33 ANION GAP (test code=GAP) 12 0-20 GLUCOSE (test code=GLU) 97 mg/dL 70-110 BLOOD UREA NITROGEN (test code=BUN) 15 mg/dL 7-18 GLOMERULAR FILTRATION RATE (test code=GFR) 75.7 80-90 Units of measure=ml/min/1.73 m2 CREATININE (test code=CREAT) 1.0 mg/dL 0.6-1.3 CALCIUM (test code=CA) 7.9 mg/dL 8.0-10.5 - XR CHEST 1 [id number] 09:58:00 FAX: Melonie Hernández MD [phone] Violet: St: ADM FAX: Vaibhav Moreno MD [phone] FAX: Volodymyr Mensah DO Name: KENISHA ONEAL [facility] : 1955 Age/S: 63/M [address] [place] [address] Unit #: [id number] Loc: G.4415 [place] [address] Phys: Volodymyr Mensah DO Acct: [id number] Dis Date: Status: ADM IN ONE #: [phone] Exam Date: 04/10/2019 0949 FAX #: [phone] Reason: fluid overload EXAMS: CPT CODE: [id number] XR CHEST 1 V 01938 CLINICAL HISTO RY: Fluid overload. COMPARISON: April 09, 2019 at 0624 Portable film of the chest performed at 0828 on April 10, 2019 demonstrates dual-lead pacemaker in place. Monitor leads are noted. Heart size is normal. Lung yoo appear clear. There is no evidence of pneumonia or congestive failure. No evidence of interstitial opacity or evidence of pulmonary edema is seen. IMPRESSION: No significant interval c hange in appearance of heart or lung yoo compared to previous examina tion. at 095 8 Reported and signed by: Mehrdad Patterson M.D. CC: Melonie Hernández MD; Vaibhav Fam MD; Volodymyr Miles gist: Ellie Coronado, RT(R) Trnscrd Date/Time/B y: 04/10/2019 (0958) : By: Luzmaria Orig Print D/T: S: 04/10/2019 (08 29) PAGE 1 Signed Report [id number] 04:48:00* Test Item Value Reference Range Comments AMMONIA (test code=AMM) 27 umol/L 0-35 BASIC METABOLIC [id number] 04:48:00* Test Item Value Reference Range Comments SODIUM (test code=NA) 132 mEq/L 134-147 POTASSIUM (test code=K) 3.0 mEq/L 3.4-5.0 CHLORIDE (test code=CL) 99 mEq/L 100-108 CARBON DIOXIDE (test code=CO2) 25 mEq/L 21-33 ANION GAP (test code=GAP) 11 0-20 GLUCOSE (test code=GLU) 97 mg/dL 70-110 BLOOD UREA NITROGEN (test code=BUN) 14 mg/dL 7-18 GLOMERULAR FILTRATION RATE (test code=GFR) 61.3 80-90 Units of measure=ml/min/1.73 m2 CREATININE (test code=CREAT) 1.2 mg/dL 0.6-1.3 CALCIUM (test code=CA) 8.0 mg/dL 8.0-10.5 HEPATIC FUNCTION [id number] 04:48:00* Test Item Value Reference Range Comments TOTAL PROTEIN (test code=PROT) 9.4 g/dL 6.4-8.2 ALBUMIN (test code=ALB) 2.70 g/dL 3.4-5.0 BILIRUBIN TOTAL (test code=BILT) 5.80 mg/dL 0.0-1.0 BILIRUBIN DIRECT (test code=BILD) 3.40 MG/DL 0.0-0.30 BILIRUBIN INDIRECT (test code=BILIND) 2.40 MG/DL SGOT/AST (test code=AST) 92 IUnit/L 15-37 SGPT/ALT (test code=ALT) 24 IUnit/L 15-65 ALKALINE PHOSPHATASE TOTAL (test code=ALKP) 117 IUnit/L 20-125 PROTHROMBIN [id number] 04:29:00* Test Item Value Reference Range Comments PROTHROMBIN TIME PATIENT (test code=PTP) 22.9 SECONDS 9.3-12.9 INTERNATIONAL NORMAL RATIO (test code=INR) 2.0 0.8-1.2 TARGET INR BY INDICATION Indication INR1. Prophylaxis of venous thrombosis 2.0 - 3.0 (orthopedic surgery), Prophylaxis of venous thrombosis (other than high-risk surgery), Treatment of Deep Vein Thrombosis/Pulmonary Embolism, Prevention of systemic embolism - Tissue heart valves, Acute Myocardial Infarction (to prevent systemic embolism), Valvular heart disease, Atrial Fibrillation, Bileaflet mechanical valve in aortic position.2. Mechanical prosthetic valves (high risk), 2.5 - 3.5 Presence of Lupus Anticoagulant or Antiphospholipid Antibodies, Prevention of systemic embolism - Acute Myocardial Infarction (to prevent recurrent infarct). CBC W/AUTO [id number] 04:24:00* Test Item Value Reference Range Comments WHITE BLOOD CELL (test code=WBC) 4.13 x10 3/uL 4.5-11.0 RED BLOOD CELL (test code=RBC) 2.74 x10 6/uL 4.00-5.60 HEMOGLOBIN (test code=HGB) 8.6 g/dL 12.5-16.9 HEMATOCRIT (test code=HCT) 25.7 % 37.5-50.7 MEAN CELL VOLUME (test code=MCV) 93.8 fL 81.0-99.0 MEAN CELL HGB (test code=MCH) 31.4 pg 27.0-33.0 MEAN CELL HGB CONCETRATION (test code=MCHC) 33.5 g/dL 33.0-37.0 RED CELL DISTRIBUTION WIDTH CV (test code=RDW) 21.2 % 11.5-14.5 RED CELL DISTRIBUTION WIDTH SD (test code=RDW-SD) 72.8 fL 37.0-54.0 PLATELET COUNT (test code=PLT) 72 x10 3/uL 150-400 IMMATURE PLATELET FRACTION (test code=IPF) 1.5 % 0.9-11.2 MEAN PLATELET VOLUME (test code=MPV) 9.5 fL 7.0-9.0 NEUTROPHIL % (test code=NT%) 67.9 % 56.0-77.0 IMMATURE GRANULOCYTE % (test code=IG%) 0.7 % 0.0-2.0 LYMPHOCYTE % (test code=LY%) 13.3 % 14.0-32.0 MONOCYTE % (test code=MO%) 12.3 % 4.8-9.0 EOSINOPHIL % (test code=EO%) 4.1 % 0.3-3.7 BASOPHIL % (test code=BA%) 1.7 % 0.0-2.0 NUCLEATED RBC % (test code=NRBC%) 0.0 % 0-0 NEUTROPHIL # (test code=NT#) 2.80 x10 3/uL 2.0-7.6 IMMATURE GRANULOCYTE # (test code=IG#) 0.03 x10 3/uL 0.00-0.03 LYMPHOCYTE # (test code=LY#) 0.55 x10 3/uL 1.0-3.8 MONOCYTE # (test code=MO#) 0.51 x10 3/uL 0.1-0.8 EOSINOPHIL # (test code=EO#) 0.17 x10 3/uL 0.0-0.2 BASOPHIL # (test code=BA#) 0.07 x10 3/uL 0.0-0.2 NUCLEATED RBC # (test code=NRBC#) 0.00 x10 3/uL 0.0-0.1 MANUAL DIFF REQUIRED (test code=MDIFF) NO - XR CHEST 1 [id number] 07:59:00 FAX: Melonie Hernández MD [phone] Violet: St: ADM FAX: Vaibhav Moreno MD [phone] FAX: Volodymyr Mensah DO Name: KENISHA ONEAL [facility] : 1955 Age/S: 63/M [address] [place] [address] Blvd Unit #: [id number] Loc: G.4415 [place] [address] Phys: Volodymyr Mensah DO Acct: [id number] Dis Date: Status: ADM IN PH ONE #: [phone] Exam Date: 04/09/2019711 FAX #: [phone] Reason: fluid overload EXAMS: CPT CODE: [id number] XR CHEST 1 V 67154 CHEST, SINGLE VIEW HISTORY: Dyspnea Comparison made to 04/08/19. FINDINGS: The lungs are clear. The heart size and p ulmonary vascularity are within normal limits. Right subclavian dual-lead transvenous pacemaker position is stable. IMPRESSION: Stable chest. SL:01 at 0759 Reported and signed by: Cornelio Posey M.D. CC: Melonie Hernández MD; Vaibhav marino MD; Volodymyr Mensah DO Technologist: Denise Romero, RT(R); Lisseth Johnson RT (R) Trnscrd Date/Time/By: 04/09/2019 (0759) : By: Karel O rig Print D/T: S: 04/09/2019 (0802) PAGE 1 Signed Report BASIC METABOLIC PANEL 2019-04-09 06:20:00* Test Item Value Reference Range Comments SODIUM (test code=NA) 133 mEq/L 134-147 POTASSIUM (test code=K) 3.0 mEq/L 3.4-5.0 CHLORIDE (test code=CL) 100 mEq/L 100-108 CARBON DIOXIDE (test code=CO2) 25 mEq/L 21-33 ANION GAP (test code=GAP) 11 0-20 GLUCOSE (test code=GLU) 146 mg/dL 70-110 BLOOD UREA NITROGEN (test code=BUN) 14 mg/dL 7-18 GLOMERULAR FILTRATION RATE (test code=GFR) 61.3 80-90 Units of measure=ml/min/1.73 m2 CREATININE (test code=CREAT) 1.2 mg/dL 0.6-1.3 CALCIUM (test code=CA) 8.3 mg/dL 8.0-10.5 HEPATIC FUNCTION [id number] 06:20:00* Test Item Value Reference Range Comments TOTAL PROTEIN (test code=PROT) 9.2 g/dL 6.4-8.2 ALBUMIN (test code=ALB) 2.60 g/dL 3.4-5.0 BILIRUBIN TOTAL (test code=BILT) 5.70 mg/dL 0.0-1.0 BILIRUBIN DIRECT (test code=BILD) 3.40 MG/DL 0.0-0.30 BILIRUBIN INDIRECT (test code=BILIND) 2.30 MG/DL SGOT/AST (test code=AST) 95 IUnit/L 15-37 SGPT/ALT (test code=ALT) 23 IUnit/L 15-65 ALKALINE PHOSPHATASE TOTAL (test code=ALKP) 104 IUnit/L 20-125 [id number] 06:19:00* Test Item Value Reference Range Comments AMMONIA (test code=AMM) 62 umol/L 0-35 CBC W/AUTO [id number] 06:08:00* Test Item Value Reference Range Comments WHITE BLOOD CELL (test code=WBC) 3.02 x10 3/uL 4.5-11.0 RED BLOOD CELL (test code=RBC) 2.59 x10 6/uL 4.00-5.60 HEMOGLOBIN (test code=HGB) 8.1 g/dL 12.5-16.9 HEMATOCRIT (test code=HCT) 24.5 % 37.5-50.7 MEAN CELL VOLUME (test code=MCV) 94.6 fL 81.0-99.0 MEAN CELL HGB (test code=MCH) 31.3 pg 27.0-33.0 MEAN CELL HGB CONCETRATION (test code=MCHC) 33.1 g/dL 33.0-37.0 RED CELL DISTRIBUTION WIDTH CV (test code=RDW) 21.4 % 11.5-14.5 RED CELL DISTRIBUTION WIDTH SD (test code=RDW-SD) 73.5 fL 37.0-54.0 PLATELET COUNT (test code=PLT) 56 x10 3/uL 150-400 MEAN PLATELET VOLUME (test code=MPV) 9.2 fL 7.0-9.0 NEUTROPHIL % (test code=NT%) 69.2 % 56.0-77.0 IMMATURE GRANULOCYTE % (test code=IG%) 1.0 % 0.0-2.0 LYMPHOCYTE % (test code=LY%) 13.6 % 14.0-32.0 MONOCYTE % (test code=MO%) 11.6 % 4.8-9.0 EOSINOPHIL % (test code=EO%) 3.3 % 0.3-3.7 BASOPHIL % (test code=BA%) 1.3 % 0.0-2.0 NUCLEATED RBC % (test code=NRBC%) 0.0 % 0-0 NEUTROPHIL # (test code=NT#) 2.09 x10 3/uL 2.0-7.6 IMMATURE GRANULOCYTE # (test code=IG#) 0.03 x10 3/uL 0.00-0.03 LYMPHOCYTE # (test code=LY#) 0.41 x10 3/uL 1.0-3.8 MONOCYTE # (test code=MO#) 0.35 x10 3/uL 0.1-0.8 EOSINOPHIL # (test code=EO#) 0.10 x10 3/uL 0.0-0.2 BASOPHIL # (test code=BA#) 0.04 x10 3/uL 0.0-0.2 NUCLEATED RBC # (test code=NRBC#) 0.00 x10 3/uL 0.0-0.1 MANUAL DIFF REQUIRED (test code=MDIFF) NO - XR CHEST 1 [id number] 08:44:00 FAX: Melonie Hernández MD [phone] Violet: St: ADM FAX: Vaibhav Moreno MD [phone] FAX: Volodymyr Mensah DO [facility] 1955 Age/S: 63/[place] [address] [place] [address] Unit #: [id number] Loc: G.4415 [place] [address] Phys: Volodymyr Mensah DO Acct: [id number] Dis Date: Status: ADM IN ONE #: [phone] Exam Date: 04/08/2019 0733 FAX #: [phone] Reason: fluid overload EXAMS: CPT CODE: [id number] XR CHEST 1 V 97995 Portab le chest performed April 08, 2019 0636 hours. COMPARISON: April 07. CLINICAL HISTORY: Fluid overload, dyspnea. DISCU SSION: Single portable chest is submitted. Right-sided dual-lead pacemak er is present. Heart size is normal. Atherosclerotic vascular calcificat ions are noted. Mild prominence of the central pulmonary vasculatu re, compatible with mild fluid overload. No focal consolidations or pneum othoraces seen. Osseous structures within normal limits. IMPRESSION: 1. Prominence of the central pulmonary vasculature, compati ble with mild fluid overload.. at 0844 Reported and signed b y: Smitha Houser M.D. CC: Melonie Hernández MD; Vaibhav Fam MD; Volodymyr Mensah DO Technologist: Denise Romero, RT(R); Lisseth Johnson, RT(R) Trnscrd Date/Time/By: 04/08/2019 (0844) : By: JayNMG Orig Print D/T: S: 04/08/2019 (0801) PAGE 1 Signed Report [id number] 08:26:00* Test Item Value Reference Range Comments AMMONIA (test code=AMM) 48 umol/L 0-35 BASIC METABOLIC [id number] 08:11:00* Test Item Value Reference Range Comments SODIUM (test code=NA) 135 mEq/L 134-147 POTASSIUM (test code=K) 3.0 mEq/L 3.4-5.0 CHLORIDE (test code=CL) 101 mEq/L 100-108 CARBON DIOXIDE (test code=CO2) 26 mEq/L 21-33 ANION GAP (test code=GAP) 11 0-20 GLUCOSE (test code=GLU) 103 mg/dL 70-110 BLOOD UREA NITROGEN (test code=BUN) 19 mg/dL 7-18 GLOMERULAR FILTRATION RATE (test code=GFR) 61.3 80-90 Units of measure=ml/min/1.73 m2 CREATININE (test code=CREAT) 1.2 mg/dL 0.6-1.3 CALCIUM (test code=CA) 8.5 mg/dL 8.0-10.5 HEPATIC FUNCTION [id number] 08:11:00* Test Item Value Reference Range Comments TOTAL PROTEIN (test code=PROT) 9.3 g/dL 6.4-8.2 ALBUMIN (test code=ALB) 2.70 g/dL 3.4-5.0 BILIRUBIN TOTAL (test code=BILT) 6.00 mg/dL 0.0-1.0 BILIRUBIN DIRECT (test code=BILD) 3.10 MG/DL 0.0-0.30 BILIRUBIN INDIRECT (test code=BILIND) 2.90 MG/DL SGOT/AST (test code=AST) 95 IUnit/L 15-37 SGPT/ALT (test code=ALT) 23 IUnit/L 15-65 ALKALINE PHOSPHATASE TOTAL (test code=ALKP) 105 IUnit/L 20-125 CBC W/AUTO [id number] 08:08:00* Test Item Value Reference Range Comments WHITE BLOOD CELL (test code=WBC) 3.68 x10 3/uL 4.5-11.0 RED BLOOD CELL (test code=RBC) 2.67 x10 6/uL 4.00-5.60 HEMOGLOBIN (test code=HGB) 8.4 g/dL 12.5-16.9 HEMATOCRIT (test code=HCT) 26.2 % 37.5-50.7 MEAN CELL VOLUME (test code=MCV) 98.1 fL 81.0-99.0 MEAN CELL HGB (test code=MCH) 31.5 pg 27.0-33.0 MEAN CELL HGB CONCETRATION (test code=MCHC) 32.1 g/dL 33.0-37.0 RED CELL DISTRIBUTION WIDTH CV (test code=RDW) 21.5 % 11.5-14.5 RED CELL DISTRIBUTION WIDTH SD (test code=RDW-SD) 76.6 fL 37.0-54.0 PLATELET COUNT (test code=PLT) 60 x10 3/uL 150-400 MEAN PLATELET VOLUME (test code=MPV) 9.3 fL 7.0-9.0 NEUTROPHIL % (test code=NT%) 75.5 % 56.0-77.0 IMMATURE GRANULOCYTE % (test code=IG%) 0.8 % 0.0-2.0 LYMPHOCYTE % (test code=LY%) 9.8 % 14.0-32.0 MONOCYTE % (test code=MO%) 6.8 % 4.8-9.0 EOSINOPHIL % (test code=EO%) 5.2 % 0.3-3.7 BASOPHIL % (test code=BA%) 1.9 % 0.0-2.0 NUCLEATED RBC % (test code=NRBC%) 0.0 % 0-0 NEUTROPHIL # (test code=NT#) 2.78 x10 3/uL 2.0-7.6 IMMATURE GRANULOCYTE # (test code=IG#) 0.03 x10 3/uL 0.00-0.03 LYMPHOCYTE # (test code=LY#) 0.36 x10 3/uL 1.0-3.8 MONOCYTE # (test code=MO#) 0.25 x10 3/uL 0.1-0.8 EOSINOPHIL # (test code=EO#) 0.19 x10 3/uL 0.0-0.2 BASOPHIL # (test code=BA#) 0.07 x10 3/uL 0.0-0.2 NUCLEATED RBC # (test code=NRBC#) 0.00 x10 3/uL 0.0-0.1 MANUAL DIFF REQUIRED (test code=MDIFF) NO [id number] 22:16:00* Test Item Value Reference Range Comments GLUBED (test code=GLUBED) 146 MG/DL 70-110 Performed by certified electric tripper machine operator at [facility] - XR CHEST 1 [id number] 12:48:00 FAX: Melonie Hernández MD [phone] Violet: St: ADM FAX: Vaibhav Moreno MD [phone] FAX: Volodymyr Mensah DO Name: KENISHA ONEAL [facility] : 1955 Age/S: 63/M [address] Unit #: [id number] Loc: G.4415 [place] [address] Phys: Volodymyr Mensah DO Acct: [id number] Dis Date: Status: ADM IN PH ONE #: [phone] Exam Date: 04/07/2019 1150 FAX #: [phone] Reason: fluid overload EXAMS: CPT CODE: [id number] XR CHEST 1 V 12837 EXAM: CHEST SI NGLE VIEW HISTORY: 63-year-old male with fluid overload COMPARISON: Chest radiograph 04/05/2019 FINDINGS: Improved conge stion. No focal consolidation. The cardiomediastinal silhouette is stabl e. Osseous structures are unchanged. Stable position of right subclavian dual-chamber pacer. IMPRESSION: 1. Improved c ongestion. SL: [id number] Electronic[employer] lly Signed by Jorge Yee on 04/07/2019 at 1248 Repo rted and signed by: Leny Yee M.D. CC: Melonie Patel; Vaibhav Fam MD; Volodymyr Mensah DO Technologist: RT Ginger(R) Trnscrd Date/Time/By: 04/07/2019 (5606) : By: Mariana H17 Orig Print D/T: S: 04/07/2019 (9602) PAGE 1 Signed Report - US ABDOMEN [id number] 09:53:00 Name: KENISHA ONEAL [facility] : 1955 Age/S: 63 / M [address] [place] [address] Unit #: [id number] Loc: [place] [address] Phys: Antonio Holder MD Acct: [id number] Dis Date: Status: ADM IN PHONE #: [phone] Exam Date: 04/07/2019 0928 FAX #: [phone] Reason: cirrhosis EXAMS: CPT CODE: [id number] US ABDOMEN COMPLETE 10612 PROCEDURE: ABDOMINAL ULTRASOUND INDICATION: 63-year-old male with cirrhosis COMPARISON: US abdomen 07/19/2018 TECHNIQUE: Sonographic evaluation of the abdomen was performed with supplemental color and pulsed Doppler. FINDINGS: LIVER: The liver is normal in size and morphology with heterogeneous parenchymal echogenicity. Nodular contour noted. GALLBLADDER: There are no gallstones, sludge, pericholecystic fluid or wall thickening. Negative sonographic Pa sign. BILE DUCTS: No intrahepatic biliary dilatation. The common duct is not well seen. PANCREAS: The majority of the pancreas is obscured by bowel gas. Unremarkable visualized portions of the head and body. SPLEEN: The spleen is enlarged, measuring 17.6 cm in length. KIDNEYS: The right kidney measures 15.1 cm in length, mildly enlarged. Normal contour and parenchymal echogenicity. There is no hydronephrosis, nephrolithiasis, mass lesion or perinephric collection. The left kidney measures 14.7 cm in length, mildly enlarged. Normal contour and pare nchymal echogenicity. There is no hydronephrosis, nephrolithiasis, mass le mykel or perinephric collection. AORTA AND INFERIOR VENA CAVA : The aorta is obscured by bowel gas. Hepatic IVC is patent. Additional comments: No free intraperitoneal fluid. IM PRESSION: 1. Heterogeneous nodular liver suggestive of cirrhosis. 2. Splenomegaly suggestive of portal hypertension. 3. Bilateral ne phromegaly. PAGE 1 Signed Report ( CONTINUED) Name: KENISHA ONEAL [facility] : 1955 Age/S: 63 / M [address] [place] [address] U nit #: [id number] Loc: [place] [address] Phys: Antonio Holder MD Acct: [id number] Dis Date: Status: ADM IN PHONE #: [phone] Exam Date: 04/07/2019927 FAX #: [phone] Reason: cirrhosis EXAMS: CPT CODE: [id number] US ABDOMEN COMPLETE 85509 <Continued> SL: [id number] at 0953 Reported and signed by: Leny Yee M.D. CC: Melonie Hernández MD; Antonio Holder MD; Vaibhav Fam MD Technologist: Joann Lawler Trnlab Date/Time: 04/07/2019 (0953) Patrick.[email or web address] Orig Print D/T: S: 04/07/2019 (0957) Probe: PAGE 2 Signed Report B-TYPE NATRIURETIC [id number] 09:30:00* Test Item Value Reference Range Comments B-TYPE NATRIURETIC PEPTIDE (test code=BNP) 141.9 PG/ML 0-100 BASIC METABOLIC [id number] 08:10:00* Test Item Value Reference Range Comments SODIUM (test code=NA) 135 mEq/L 134-147 POTASSIUM (test code=K) 2.9 mEq/L 3.4-5.0 CHLORIDE (test code=CL) 100 mEq/L 100-108 CARBON DIOXIDE (test code=CO2) 25 mEq/L 21-33 ANION GAP (test code=GAP) 13 0-20 GLUCOSE (test code=GLU) 100 mg/dL 70-110 BLOOD UREA NITROGEN (test code=BUN) 16 mg/dL 7-18 GLOMERULAR FILTRATION RATE (test code=GFR) 55.9 80-90 Units of measure=ml/min/1.73 m2 CREATININE (test code=CREAT) 1.3 mg/dL 0.6-1.3 CALCIUM (test code=CA) 8.6 mg/dL 8.0-10.5 HEPATIC FUNCTION [id number] 08:10:00* Test Item Value Reference Range Comments TOTAL PROTEIN (test code=PROT) 9.1 g/dL 6.4-8.2 ALBUMIN (test code=ALB) 2.60 g/dL 3.4-5.0 BILIRUBIN TOTAL (test code=BILT) 6.40 mg/dL 0.0-1.0 BILIRUBIN DIRECT (test code=BILD) 2.90 MG/DL 0.0-0.30 BILIRUBIN INDIRECT (test code=BILIND) 3.50 MG/DL SGOT/AST (test code=AST) 106 IUnit/L 15-37 SGPT/ALT (test code=ALT) 24 IUnit/L 15-65 ALKALINE PHOSPHATASE TOTAL (test code=ALKP) 106 IUnit/L 20-125 [id number] 05:42:00* Test Item Value Reference Range Comments AMMONIA (test code=AMM) 46 umol/L 0-35 PROTHROMBIN [id number] 18:37:00* Test Item Value Reference Range Comments PROTHROMBIN TIME PATIENT (test code=PTP) 21.5 SECONDS 9.3-12.9 INTERNATIONAL NORMAL RATIO (test code=INR) 1.9 0.8-1.2 TARGET INR BY INDICATION Indication INR1. Prophylaxis of venous thrombosis 2.0 - 3.0 (orthopedic surgery), Prophylaxis of venous thrombosis (other than high-risk surgery), Treatment of Deep Vein Thrombosis/Pulmonary Embolism, Prevention of systemic embolism - Tissue heart valves, Acute Myocardial Infarction (to prevent systemic embolism), Valvular heart disease, Atrial Fibrillation, Bileaflet mechanical valve in aortic position.2. Mechanical prosthetic valves (high risk), 2.5 - 3.5 Presence of Lupus Anticoagulant or Antiphospholipid Antibodies, Prevention of systemic embolism - Acute Myocardial Infarction (to prevent recurrent infarct). THROMBOPLASTIN TIME [id number] 18:37:00* Test Item Value Reference Range Comments THROMBOPLASTIN TIME PARTIAL (test code=PTT) 40.5 Seconds 25.0-39.5 Therapeutic Range: 50.4 - 88.3 Seconds Effective 03/14/2019 B-TYPE NATRIURETIC [id number] 11:41:00* Test Item Value Reference Range Comments B-TYPE NATRIURETIC PEPTIDE (test code=BNP) 491.6 PG/ML 0-100 HGBA1C%2019-04-06 11:01:00* Test Item Value Reference Range Comments HGBA1C% (test code=HGBA1C%) 4.4 %A1C 4.8-6.0 LIPID PROFILE (CORONARY RISK)2019-04-06 09:00:00* Test Item Value Reference Range Comments TRIGLYCERIDES (test code=TRIG) 187 mg/dL 40-150 CHOLESTEROL (test code=CHOL) 171 mg/dL <200 CHOLESTEROL/HDL RATIO (test code=CHOLHDL) 10.06 RATIO 3.43-4.97 RISK ASSOCIATED WITH CHOL/HDL RATIOS: RISK MALE FEMALE1/2 AVERAGE 3.43 3.27AVERAGE 4.97 4.442X AVERAGE 9.55 7.053X AVERAGE 23.39 11.04 NOTE THAT THE REFERENCE VALUE IS RELATEDTO RISK LEVELS RECOMMENDED BY THE NATL.HEART, LUNG, AND BLOOD INST. HDL CHOLESTEROL (test code=HDL) 17.0 mg/dL 32-72 LIPOPROTEIN LDL (test code=LDL) 124 mg/dL 0-100 <100 [id number] NEAR OPTIMAL/ABOVE [id number] HIGH>UT=758 VERY HIGH*Guidelines provided by the National Cholesterol EducationProgram Adult Treatment Panel III BASIC METABOLIC [id number] 07:45:00* Test Item Value Reference Range Comments SODIUM (test code=NA) 138 mEq/L 134-147 POTASSIUM (test code=K) 3.2 mEq/L 3.4-5.0 CHLORIDE (test code=CL) 103 mEq/L 100-108 CARBON DIOXIDE (test code=CO2) 28 mEq/L 21-33 ANION GAP (test code=GAP) 10 0-20 GLUCOSE (test code=GLU) 95 mg/dL 70-110 BLOOD UREA NITROGEN (test code=BUN) 12 mg/dL 7-18 GLOMERULAR FILTRATION RATE (test code=GFR) 55.9 80-90 Units of measure=ml/min/1.73 m2 CREATININE (test code=CREAT) 1.3 mg/dL 0.6-1.3 CALCIUM (test code=CA) 8.2 mg/dL 8.0-10.5 CBC W/AUTO [id number] 06:56:00* Test Item Value Reference Range Comments WHITE BLOOD CELL (test code=WBC) 5.34 x10 3/uL 4.5-11.0 RED BLOOD CELL (test code=RBC) 2.68 x10 6/uL 4.00-5.60 HEMOGLOBIN (test code=HGB) 8.3 g/dL 12.5-16.9 HEMATOCRIT (test code=HCT) 25.8 % 37.5-50.7 MEAN CELL VOLUME (test code=MCV) 96.3 fL 81.0-99.0 MEAN CELL HGB (test code=MCH) 31.0 pg 27.0-33.0 MEAN CELL HGB CONCETRATION (test code=MCHC) 32.2 g/dL 33.0-37.0 RED CELL DISTRIBUTION WIDTH CV (test code=RDW) 21.2 % 11.5-14.5 RED CELL DISTRIBUTION WIDTH SD (test code=RDW-SD) 74.4 fL 37.0-54.0 PLATELET COUNT (test code=PLT) 56 x10 3/uL 150-400 MEAN PLATELET VOLUME (test code=MPV) 9.9 fL 7.0-9.0 NEUTROPHIL % (test code=NT%) 72.3 % 56.0-77.0 IMMATURE GRANULOCYTE % (test code=IG%) 1.3 % 0.0-2.0 LYMPHOCYTE % (test code=LY%) 13.9 % 14.0-32.0 MONOCYTE % (test code=MO%) 6.2 % 4.8-9.0 EOSINOPHIL % (test code=EO%) 5.2 % 0.3-3.7 BASOPHIL % (test code=BA%) 1.1 % 0.0-2.0 NUCLEATED RBC % (test code=NRBC%) 0.0 % 0-0 NEUTROPHIL # (test code=NT#) 3.86 x10 3/uL 2.0-7.6 IMMATURE GRANULOCYTE # (test code=IG#) 0.07 x10 3/uL 0.00-0.03 LYMPHOCYTE # (test code=LY#) 0.74 x10 3/uL 1.0-3.8 MONOCYTE # (test code=MO#) 0.33 x10 3/uL 0.1-0.8 EOSINOPHIL # (test code=EO#) 0.28 x10 3/uL 0.0-0.2 BASOPHIL # (test code=BA#) 0.06 x10 3/uL 0.0-0.2 NUCLEATED RBC # (test code=NRBC#) 0.00 x10 3/uL 0.0-0.1 MANUAL DIFF REQUIRED (test code=MDIFF) NO LIPID PROFILE (CORONARY RISK)2019-04-06 01:36:00* Test Item Value Reference Range Comments TRIGLYCERIDES (test code=TRIG) 192 mg/dL 40-150 CHOLESTEROL (test code=CHOL) 175 mg/dL <200 CHOLESTEROL/HDL RATIO (test code=CHOLHDL) 9.72 RATIO 3.43-4.97 RISK ASSOCIATED WITH CHOL/HDL RATIOS: RISK MALE FEMALE1/2 AVERAGE 3.43 3.27AVERAGE 4.97 4.442X AVERAGE 9.55 7.053X AVERAGE 23.39 11.04 NOTE THAT THE REFERENCE VALUE IS RELATEDTO RISK LEVELS RECOMMENDED BY THE NATL.HEART, LUNG, AND BLOOD INST. HDL CHOLESTEROL (test code=HDL) 18.0 mg/dL 32-72 LIPOPROTEIN LDL (test code=LDL) 130 mg/dL 0-100 <100 [id number] NEAR OPTIMAL/ABOVE [id number] HIGH>KR=259 VERY HIGH*Guidelines provided by the National Cholesterol EducationProgram Adult Treatment Panel III T4 [id number] 01:36:00* Test Item Value Reference Range Comments T4 FREE (test code=T4F) 1.3 ng/dL 0.77-1.61 THYROID STIMULATING [id number] 01:36:00* Test Item Value Reference Range Comments THYROID STIMULATING HORMONE (test code=TSH) 41.00 0.42-5.47 Results in ruby- International Units/mL HGBA1C%2019-04-05 23:12:00* Test Item Value Reference Range Comments HGBA1C% (test code=HGBA1C%) < 3.5 %A1C 4.8-6.0 HEPATIC FUNCTION [id number] 22:43:00* Test Item Value Reference Range Comments TOTAL PROTEIN (test code=PROT) 9.8 g/dL 6.4-8.2 ALBUMIN (test code=ALB) 2.80 g/dL 3.4-5.0 BILIRUBIN TOTAL (test code=BILT) 7.80 mg/dL 0.0-1.0 BILIRUBIN DIRECT (test code=BILD) 3.50 MG/DL 0.0-0.30 BILIRUBIN INDIRECT (test code=BILIND) 4.30 MG/DL SGOT/AST (test code=AST) 119 IUnit/L 15-37 SGPT/ALT (test code=ALT) 28 IUnit/L 15-65 ALKALINE PHOSPHATASE TOTAL (test code=ALKP) 118 IUnit/L 20-125 [id number] 22:27:00* Test Item Value Reference Range Comments AMMONIA (test code=AMM) 67 umol/L 0-35 - CT ANGIO [id number] 20:08:00 Name: KENISHA ONEAL [facility] : 1955 Age/S: 63 / M [address] [place] [address] Blvd Unit #: [id number] Loc: [place] [address] Phys: De Khan ENTRY LEVEL SOFTWARE ENGINEER Acct: [id number] Dis Date: Status: ADM IN PHONE #: [phone] Exam Date: 04/05/20191999 FAX #: [phone] Reason: Chest pain, elevated d-dimer EXAMS: CPT CODE: [id number] CT ANGIO CHEST [address] CT ANGIOGRAM CHEST INDICATION: Chest pain, elevated d-dimer. Dyspnea. TECHNIQUE: 100 mL Isovue iodinated intravenous contrast was administered. CT angiography of the chest was performed with axial images. Maximum intensity projection images were also reviewed. Radiation dose length product 460 mGy-cm. COMPARISONS: Chest x-ray 04/05/2019 FINDINGS: There is no acute osseous fracture or dislocation. There is moderate gynecomastia. There is a right-sided cardiac pacemaker. The mediastinum reveals no mass, organized fluid collection or lymphadenopathy. There are calcified granulomas in the chest. There is cardiomegaly. There is a severe burden of atherosclerotic kelsey cification of the coronary arteries. The pulmonary arteries are no rmal caliber with no pulmonary embolism. There is mild atherosclerotic vas cular calcification of the aorta. The aorta reveals no aneurysm or acute p rocess. There is mild segmental mucosal thickening of the distal t horacic esophagus. There is no tracheobronchomalacia or bron chiectasis. There is no filling defect in the airways. There is atelecta sis in the bilateral lungs. I cannot exclude infiltrate in the lingula. There is no pneumothorax or pleural effusion. There is moder ate fatty infiltration of the liver. There is recanalization of the umbil ical vein suggesting portal hypertension. IMPRESSION: 1. There is no pulmonary embolism. 2. There is bilateral depend ent pulmonary atelectasis. There is atelectasis versus infiltrate in th e lingula. 3. There is cardiomegaly and a heavy burden of coronary hardeep ry PAGE 1 Signed Report (CONTINUED ) Name: KENISHA ONEAL [facility] OB: 1955 Age/S: 63 / M [address] [place] [address] Unit #: [id number] Loc: [place] [address] Phys: De Khan ENTRY LEVEL SOFTWARE ENGINEER Acct: [id number] Dis Date: Status: ADM IN PHONE #: [phone] Exam Date: 04/05/20191999 FAX #: [phone] Reason: Chest pain, elevated d-dimer EXAMS: CPT CODE: [id number] [place] EST [address] <Continued> calcification. 4. There is moderate fatty infiltration of the liver. There is recanalization of the umbilical vein suggesting portal venous hypertension. 5. There is mild segmental mucosal thickening of the distal thoracic esophagus. This may be due to spasm or esophagitis. at 2008 Reported and signed by: Baudilio Barrera D.O. CC: Corbin Espinoza DO; De Khan ENTRY LEVEL SOFTWARE ENGINEER; Vaibhav Fam MD Technologist:Deborah Garcia, RT(R) CTDI: DLP: Trnscb Date/Time: 04/05/2019 (2007) [email or web address] Orig Print D/T: S: 04/05/2019 (2010) PAGE 2 Signed Report [id number] 19:00:00* Test Item Value Reference Range Comments D-DIMER (test code=DDIMER) 3262 ng/mlFEU <=500 THROMBOSIS AND/OR PULMONARY EMBOLISM AND THE CLINICAL CUT- OFF VALUE FOR EXCLUSION (500 ng/mL FEU) OF THESE CONDITIONSIS VALIDATED BY THE CO CHAIRMAN OF THE METHOD. A NEGATIVE D-DIMER RESULT WHEN COMBINED WITH A CLINICALASSESSMENT OF LOW PRETEST PROBABILITY HAS BEEN SHOWN TO HAVEA HIGH NEGATIVE PREDICTIVE VALUE OF DVT OR PE. D-DIMER VALUES >500 ng/mL FEU ARE NOT DIAGNOSTIC FOR DVT, PEor DIC WITHOUT OTHER CONFIRMATORY TESTS AND APPROPRIATECLINICAL EUALUATIONS. B-TYPE NATRIURETIC [id number] 16:54:00* Test Item Value Reference Range Comments B-TYPE NATRIURETIC PEPTIDE (test code=BNP) 362.6 PG/ML 0-100 CBC W/AUTO [id number] 16:39:00* Test Item Value Reference Range Comments WHITE BLOOD CELL (test code=WBC) 4.50 x10 3/uL 4.5-11.0 RED BLOOD CELL (test code=RBC) 2.76 x10 6/uL 4.00-5.60 HEMOGLOBIN (test code=HGB) 8.6 g/dL 12.5-16.9 HEMATOCRIT (test code=HCT) 26.0 % 37.5-50.7 MEAN CELL VOLUME (test code=MCV) 94.2 fL 81.0-99.0 MEAN CELL HGB (test code=MCH) 31.2 pg 27.0-33.0 MEAN CELL HGB CONCETRATION (test code=MCHC) 33.1 g/dL 33.0-37.0 RED CELL DISTRIBUTION WIDTH CV (test code=RDW) 21.1 % 11.5-14.5 RED CELL DISTRIBUTION WIDTH SD (test code=RDW-SD) 72.2 fL 37.0-54.0 PLATELET COUNT (test code=PLT) 52 x10 3/uL 150-400 MEAN PLATELET VOLUME (test code=MPV) 9.1 fL 7.0-9.0 NEUTROPHIL % (test code=NT%) 75.8 % 56.0-77.0 IMMATURE GRANULOCYTE % (test code=IG%) 1.3 % 0.0-2.0 LYMPHOCYTE % (test code=LY%) 10.9 % 14.0-32.0 MONOCYTE % (test code=MO%) 6.9 % 4.8-9.0 EOSINOPHIL % (test code=EO%) 3.8 % 0.3-3.7 BASOPHIL % (test code=BA%) 1.3 % 0.0-2.0 NUCLEATED RBC % (test code=NRBC%) 0.0 % 0-0 NEUTROPHIL # (test code=NT#) 3.41 x10 3/uL 2.0-7.6 IMMATURE GRANULOCYTE # (test code=IG#) 0.06 x10 3/uL 0.00-0.03 LYMPHOCYTE # (test code=LY#) 0.49 x10 3/uL 1.0-3.8 MONOCYTE # (test code=MO#) 0.31 x10 3/uL 0.1-0.8 EOSINOPHIL # (test code=EO#) 0.17 x10 3/uL 0.0-0.2 BASOPHIL # (test code=BA#) 0.06 x10 3/uL 0.0-0.2 NUCLEATED RBC # (test code=NRBC#) 0.00 x10 3/uL 0.0-0.1 MANUAL DIFF REQUIRED (test code=MDIFF) NO PLT [id number] 16:39:00* Test Item Value Reference Range Comments PLATELET ESTIMATE (test code=PLTEST) 48-60 THOUSAND ADEQUATE PLATELET MORPHOLOGY (test code=PLTMORPH) NORMAL BASIC METABOLIC [id number] 16:33:00* Test Item Value Reference Range Comments SODIUM (test code=NA) 137 mEq/L 134-147 POTASSIUM (test code=K) 2.9 mEq/L 3.4-5.0 CHLORIDE (test code=CL) 102 mEq/L 100-108 CARBON DIOXIDE (test code=CO2) 26 mEq/L 21-33 ANION GAP (test code=GAP) 12 0-20 GLUCOSE (test code=GLU) 119 mg/dL 70-110 BLOOD UREA NITROGEN (test code=BUN) 9 mg/dL 7-18 GLOMERULAR FILTRATION RATE (test code=GFR) 67.8 80-90 Units of measure=ml/min/1.73 m2 CREATININE (test code=CREAT) 1.1 mg/dL 0.6-1.3 CALCIUM (test code=CA) 7.9 mg/dL 8.0-10.5 [id number] 16:33:00* Test Item Value Reference Range Comments TROPONIN-I (test code=TROPI) < 0.015 ng/mL 0.000-0.045 Negative: <=0.045 Positive: >=0.046 Correlation with serial results, other cardiac markers andclinical findings is necessary to determine the clinicalsignificance of this result. Results using different methodologies should not be comparedto one another as quantitative results may vary by method. CBC W/AUTO [id number] 16:15:00* Test Item Value Reference Range Comments WHITE BLOOD CELL (test code=WBC) 4.50 x10 3/uL 4.5-11.0 RED BLOOD CELL (test code=RBC) 2.76 x10 6/uL 4.00-5.60 HEMOGLOBIN (test code=HGB) 8.6 g/dL 12.5-16.9 HEMATOCRIT (test code=HCT) 26.0 % 37.5-50.7 MEAN CELL VOLUME (test code=MCV) 94.2 fL 81.0-99.0 MEAN CELL HGB (test code=MCH) 31.2 pg 27.0-33.0 MEAN CELL HGB CONCETRATION (test code=MCHC) 33.1 g/dL 33.0-37.0 RED CELL DISTRIBUTION WIDTH CV (test code=RDW) 21.1 % 11.5-14.5 RED CELL DISTRIBUTION WIDTH SD (test code=RDW-SD) 72.2 fL 37.0-54.0 PLATELET COUNT (test code=PLT) 52 x10 3/uL 150-400 MEAN PLATELET VOLUME (test code=MPV) 9.1 fL 7.0-9.0 NEUTROPHIL % (test code=NT%) 75.8 % 56.0-77.0 IMMATURE GRANULOCYTE % (test code=IG%) 1.3 % 0.0-2.0 LYMPHOCYTE % (test code=LY%) 10.9 % 14.0-32.0 MONOCYTE % (test code=MO%) 6.9 % 4.8-9.0 EOSINOPHIL % (test code=EO%) 3.8 % 0.3-3.7 BASOPHIL % (test code=BA%) 1.3 % 0.0-2.0 NUCLEATED RBC % (test code=NRBC%) 0.0 % 0-0 NEUTROPHIL # (test code=NT#) 3.41 x10 3/uL 2.0-7.6 IMMATURE GRANULOCYTE # (test code=IG#) 0.06 x10 3/uL 0.00-0.03 LYMPHOCYTE # (test code=LY#) 0.49 x10 3/uL 1.0-3.8 MONOCYTE # (test code=MO#) 0.31 x10 3/uL 0.1-0.8 EOSINOPHIL # (test code=EO#) 0.17 x10 3/uL 0.0-0.2 BASOPHIL # (test code=BA#) 0.06 x10 3/uL 0.0-0.2 NUCLEATED RBC # (test code=NRBC#) 0.00 x10 3/uL 0.0-0.1 MANUAL DIFF REQUIRED (test code=MDIFF) NO PLT [id number] 16:15:00* Test Item Value Reference Range Comments PLATELET ESTIMATE (test code=PLTEST) THOUSAND ADEQUATE CBC W/AUTO [id number] 16:15:00* Test Item Value Reference Range Comments WHITE BLOOD CELL (test code=WBC) 4.50 x10 3/uL 4.5-11.0 RED BLOOD CELL (test code=RBC) 2.76 x10 6/uL 4.00-5.60 HEMOGLOBIN (test code=HGB) 8.6 g/dL 12.5-16.9 HEMATOCRIT (test code=HCT) 26.0 % 37.5-50.7 MEAN CELL VOLUME (test code=MCV) 94.2 fL 81.0-99.0 MEAN CELL HGB (test code=MCH) 31.2 pg 27.0-33.0 MEAN CELL HGB CONCETRATION (test code=MCHC) 33.1 g/dL 33.0-37.0 RED CELL DISTRIBUTION WIDTH CV (test code=RDW) 21.1 % 11.5-14.5 RED CELL DISTRIBUTION WIDTH SD (test code=RDW-SD) 72.2 fL 37.0-54.0 PLATELET COUNT (test code=PLT) 52 x10 3/uL 150-400 MEAN PLATELET VOLUME (test code=MPV) 9.1 fL 7.0-9.0 NEUTROPHIL % (test code=NT%) 75.8 % 56.0-77.0 IMMATURE GRANULOCYTE % (test code=IG%) 1.3 % 0.0-2.0 LYMPHOCYTE % (test code=LY%) 10.9 % 14.0-32.0 MONOCYTE % (test code=MO%) 6.9 % 4.8-9.0 EOSINOPHIL % (test code=EO%) 3.8 % 0.3-3.7 BASOPHIL % (test code=BA%) 1.3 % 0.0-2.0 NUCLEATED RBC % (test code=NRBC%) 0.0 % 0-0 NEUTROPHIL # (test code=NT#) 3.41 x10 3/uL 2.0-7.6 IMMATURE GRANULOCYTE # (test code=IG#) 0.06 x10 3/uL 0.00-0.03 LYMPHOCYTE # (test code=LY#) 0.49 x10 3/uL 1.0-3.8 MONOCYTE # (test code=MO#) 0.31 x10 3/uL 0.1-0.8 EOSINOPHIL # (test code=EO#) 0.17 x10 3/uL 0.0-0.2 BASOPHIL # (test code=BA#) 0.06 x10 3/uL 0.0-0.2 NUCLEATED RBC # (test code=NRBC#) 0.00 x10 3/uL 0.0-0.1 MANUAL DIFF REQUIRED (test code=MDIFF) NO PLT [id number] 16:15:00* Test Item Value Reference Range Comments PLATELET ESTIMATE (test code=PLTEST) THOUSAND ADEQUATE - XR CHEST 1 [id number] 15:47:00 FAX: Corbin Nieves DO [phone] Violet: St: REG Name: KENISHA MILLER : [birth year] Age/S: 63/M [address] [place] [address] Blvd Unit #: [id number] Loc: [place] [address] Phys: Corbin Espinoza DO Acct: [id number] Dis Date: Status: REG ER PHONE #: [phone] Exam Date: 04/05/2019 1525 FAX #: [phone] Reason: Chest Pain EXAMS: CPT CODE: [id number] XR CHEST 1 V 11993 EXAM: CHEST SINGLE VIEW HISTORY: 63-year-old male with chest pain COMPARISON: Chest ra diograph 10/02/2018 FINDINGS: Mild prominence of interstitium with increased haziness in the left midlung. Calcified granuloma in the left l king base. The cardiomediastinal silhouette is mildly prominent. Aortic calcifications. No acute osseous abnormality. Right subclavian dual chamber pacer noted. IMPRESSION: 1. Interstit ial prominence suggestive of congestion/mild edema. 2. Increased hazine ss over the left midlung may represent asymmetric edema versus an infect ious/inflammatory process. SL: [id number] at 1546 Reported and signed by: Leny Yee M.D. CC: Corbin Espinoza DO Technologist: Ruchi Garcia, RT(R); Rula Beltran RT(R) Trnscrd Date/Time/By: 04/05/2019 (5794) : By: [email or web address] Orig Print D/T: S: 04/05/2019 (9710) PAGE 1 Signed Report
[2019-06-13 12:00] VITALS: BP 114/79
== END | disposition home or self-care (01) ==
LOC: OR 08:33
PROVIDERS: ATTEND Ophthalmology
DX: H25.11 Age-related nuclear cataract, right eye (principal); I25.10 Atherosclerotic heart disease of native coronary artery without angina pectoris; Z95.0 Presence of cardiac pacemaker; I11.0 Hypertensive heart disease with heart failure; I50.9 Heart failure, unspecified; I48.91 Unspecified atrial fibrillation; I83.90 Asymptomatic varicose veins of unspecified lower extremity; E11.9 Type 2 diabetes mellitus without complications; E03.9 Hypothyroidism, unspecified; K74.60 Unspecified cirrhosis of liver; Z88.1 Allergy status to other antibiotic agents; Z91.040 Latex allergy status; Z01.812 Encounter for preprocedural laboratory examination; Z79.4 Long term (current) use of insulin; Z87.01 Personal history of pneumonia (recurrent); Z87.891 Personal history of nicotine dependence
CPT/HCPCS: 36415 ×2; 66984; 80048; 80076; 82948; 85610; 85730; J2250; J3010; V2632